=== PATIENT | female | born 1945 | race Caucasian/White ===

== ENCOUNTER 2020-01-23 09:44 | Outpatient (REF) | payer OTHER, SELFPAY ==
--- NOTE | 2020-01-23 10:24 | XR_ITS ---
EXAMINATION: XR CERVICAL SPINE CLINICAL INFORMATION: Assess osteoarthritis. Neck pain. COMPARISON: None TECHNIQUE: 2 views of the cervical spine were obtained. FINDINGS: Straightening of the normal cervical lordosis. Slight anterolisthesis of C4 on C5. This appears degenerative in nature. Vertebral body heights are maintained. Mild disc space narrowing of C5-C6 and C6-C7. Small endplate osteophytes throughout. The lung apices are clear. The prevertebral soft tissues are unremarkable. IMPRESSION: Mild multilevel degenerative changes of the cervical spine.
[2020-01-23 10:43] LABS: MANUAL DIFF FLAG NO
[2020-01-23 10:47] LABS: Basophils Absolute Auto 0.1 X10*3/uL (0.0-0.2); Basophils Percent Auto 0.8 % (0-2); Eosinophils Absolute Auto 0.2 X10*3/uL (0.0-0.4); Eosinophils Percent Auto 3.2 % (0-4); Hemoglobin 12.4 g/dl (12.0-16.0); Imm Gran Abs Auto 0.02 X10*3/uL (0.00-0.03); Imm Gran Pct Auto 0.3 % (0.0-0.4); Lymphocytes Absolute Auto 2.6 X10*3/uL (1.2-4.9); Lymphocytes Percent Auto 43.7 % (20-40); Mean Corpuscular HGB Conc 34.4 g/dl (31.0-35.0); Mean Corpuscular Hemoglobin 30.8 pg (27.0-33.0); Mean Corpuscular Volume 89.3 fL (80-98); Mean Platelet Volume 9.9 fL (9.4-12.3); Monocytes Absolute Auto 0.5 X10*3/uL (0.1-1.2); Monocytes Percent Auto 7.8 % (2-11); Neutrophils Absolute Auto 2.7 X10*3/uL (2.0-8.3); Neutrophils Percent Auto 44.2 % (45-73); Platelet Count 234 X10*3/uL (160-400); Red Blood Count 4.03 X10*6/uL (4.20-5.50); Red Cell Distribution Width 11.7 % (11.0-16.0)
[2020-01-23 11:21] LABS: Alanine Aminotransferase 25 U/L (0-31); Albumin Level 4.6 g/dL (3.5-5.0); Alkaline Phosphatase 59 U/L (39-117); Anion Gap 12 (12-20); Aspartate Amino Transferase 22 U/L (5-31); Bilirubin Total 0.6 mg/dL (0.0-1.0); Blood Urea Nitrogen 14 mg/dL (9-16); Calcium 9.5 mg/dL (8.4-10.2); Carbon Dioxide 27 mmol/L (22-29); Chloride 106 mmol/L (96-108); Estimated Glomerular Filt Rate > 60; Glucose Random 107 mg/dL (60-115); Potassium 4.4 mmol/l (3.3-5.1); Sodium 141 mmol/L (135-145); Total Protein 6.9 g/dL (6.5-8.0)
== END 2020-01-23 09:45 | disposition home or self-care (01) ==
LOC: HO.XRAY 09:44
PROVIDERS: PCP Internal Medicine; Visit Provider Internal Medicine
DX: M54.2 Cervicalgia (principal); R51.9 Headache, unspecified; I10 Essential (primary) hypertension
CPT/HCPCS: 36415; 72040; 80053; 85025

== ENCOUNTER 2021-02-16 12:19 | Outpatient (REF) | payer OTHER, SELFPAY ==
--- NOTE | ~2021-02-16 | MM_ITS ---
EXAMINATION: MM SCREENING DIGITAL BREAST TOMOSYNTHESIS, BILATERAL CLINICAL INFORMATION: Screening. Asymptomatic. The lifetime risk of breast cancer based on the Tyrer-Cuzick Model is 2.6%. COMPARISON: Mammography: December 17, 2019 and studies dating back to August 09, 2011 TECHNIQUE: Digital breast tomosynthesis is performed in both the craniocaudal and mediolateral oblique views along with computer-aided detection (CAD). Synthesized 2D images are generated from the tomosynthesis. FINDINGS: There are scattered areas of fibroglandular density (ACR BI-RADS breast composition Category b). There are no significant masses, abnormal calcifications, or other abnormalities. MM/MM tomosynthesis screening BI IMPRESSION: There are no significant changes from prior study. ASSESSMENT: BI-RADS 1: Negative RECOMMENDATION: Routine annual mammography screening. This patient's information was entered into a reminder system with a target due date for their next mammogram.
== END 2021-02-16 12:20 | disposition home or self-care (01) ==
LOC: HO.MAMMO 12:19
PROVIDERS: Visit Provider Internal Medicine
DX: Z12.31 Encounter for screening mammogram for malignant neoplasm of breast (principal)
CPT/HCPCS: 77063; 77067

== ENCOUNTER 2021-03-24 08:37 | Outpatient (REF) | payer OTHER, SELFPAY ==
[2021-03-24 10:04] LABS: MANUAL DIFF FLAG NO
[2021-03-24 10:11] LABS: Basophils Absolute Auto 0.1 X10*3/uL (0.0-0.2); Basophils Percent Auto 0.9 % (0-2); Eosinophils Absolute Auto 0.3 X10*3/uL (0.0-0.4); Eosinophils Percent Auto 4.7 % (0-4); Hematocrit 35.8 % (37.0-47.0); Hemoglobin 12.3 g/dl (12.0-16.0); Imm Gran Abs Auto 0.01 X10*3/uL (0.00-0.03); Imm Gran Pct Auto 0.2 % (0.0-0.4); Lymphocytes Absolute Auto 2.8 X10*3/uL (1.2-4.9); Lymphocytes Percent Auto 44.1 % (20-40); Mean Corpuscular HGB Conc 34.4 g/dl (31.0-35.0); Mean Corpuscular Hemoglobin 30.8 pg (27.0-33.0); Mean Corpuscular Volume 89.7 fL (80.0-98.0); Mean Platelet Volume 9.3 fL (9.4-12.3); Monocytes Absolute Auto 0.6 X10*3/uL (0.1-1.2); Monocytes Percent Auto 8.6 % (2-11); Neutrophils Absolute Auto 2.7 x10*3/uL (2.0-8.3); Neutrophils Percent Auto 41.5 % (45-73); Platelet Count 287 X10*3/uL (160-400); Red Blood Count 3.99 X10*6/uL (4.20-5.50); Red Cell Distribution Width 11.6 % (11.0-16.0); White Blood Count 6.4 X10*3/uL (4.8-10.8)
[2021-03-24 10:58] LABS: Alanine Aminotransferase 26 U/L (0-31); Albumin Level 4.5 g/dL (3.5-5.0); Alkaline Phosphatase 62 U/L (39-117); Anion Gap 11 (12-20); Aspartate Amino Transferase 25 U/L (5-31); Bilirubin Total 0.5 mg/dL (0.0-1.0); Blood Urea Nitrogen 16 mg/dL (9-16); Calcium 9.6 mg/dL (8.4-10.2); Carbon Dioxide 26 mmol/L (22-29); Chloride 108 mmol/L (96-108); Cholesterol 235 mg/dL; Estimated Glomerular Filt Rate > 60; Glucose Fasting 107 mg/dL (60-99); HDL Cholesterol 33 mg/dL; LDL Cholesterol Calculated 167 mg/dl; Potassium 4.3 mmol/L (3.3-5.1); Sodium 141 mmol/L (135-145); Total Protein 6.9 g/dL (6.5-8.0); Triglycerides 179 mg/dL
== END 2021-03-24 08:38 | disposition home or self-care (01) ==
LOC: HO.10HDL 08:37
PROVIDERS: Visit Provider Internal Medicine
DX: E78.00 Pure hypercholesterolemia, unspecified (principal); I10 Essential (primary) hypertension; R53.83 Other fatigue
CPT/HCPCS: 36415; 80053; 80061; 85025

== ENCOUNTER 2021-07-22 07:33 | Outpatient (REF) | payer OTHER, SELFPAY ==
[2021-07-22 08:00] LABS: MANUAL DIFF FLAG NO
[2021-07-22 08:09] LABS: Basophils Absolute Auto 0.1 X10*3/uL (0.0-0.2); Basophils Percent Auto 0.7 % (0-2); Eosinophils Absolute Auto 0.4 X10*3/uL (0.0-0.4); Hemoglobin 12.1 g/dl (12.0-16.0); Imm Gran Abs Auto 0.01 X10*3/uL (0.00-0.03); Imm Gran Pct Auto 0.1 % (0.0-0.4); Lymphocytes Percent Auto 41.9 % (20-40); Mean Corpuscular HGB Conc 34.6 g/dl (31.0-35.0); Mean Corpuscular Hemoglobin 30.6 pg (27.0-33.0); Mean Corpuscular Volume 88.6 fL (80.0-98.0); Mean Platelet Volume 9.3 fL (9.4-12.3); Monocytes Absolute Auto 0.6 X10*3/uL (0.1-1.2); Monocytes Percent Auto 7.6 % (2-11); Neutrophils Absolute Auto 3.2 x10*3/uL (2.0-8.3); Neutrophils Percent Auto 44.7 % (45-73); Platelet Count 238 X10*3/uL (160-400); Red Blood Count 3.95 X10*6/uL (4.20-5.50); Red Cell Distribution Width 11.9 % (11.0-16.0); White Blood Count 7.2 X10*3/uL (4.8-10.8)
[2021-07-22 08:34] LABS: Alanine Aminotransferase 34 U/L (0-31); Albumin Level 4.5 g/dL (3.5-5.0); Alkaline Phosphatase 61 U/L (39-117); Anion Gap 14 (12-20); Aspartate Amino Transferase 29 U/L (5-31); Bilirubin Total 0.6 mg/dL (0.0-1.0); Blood Urea Nitrogen 11 mg/dL (9-16); Calcium 9.8 mg/dL (8.4-10.2); Carbon Dioxide 22 mmol/L (22-29); Chloride 110 mmol/L (96-108); Cholesterol 146 mg/dL; Estimated Glomerular Filt Rate > 60; Glucose Fasting 128 mg/dL (60-99); HDL Cholesterol 38 mg/dL; LDL Cholesterol Calculated 88 mg/dl; Sodium 142 mmol/L (135-145); Total Protein 6.8 g/dL (6.5-8.0); Triglycerides 103 mg/dL
[2021-07-22 08:56] LABS: Vitamin D 25-OH Total 71.2 ng/mL (>30)
== END 2021-07-22 07:34 | disposition home or self-care (01) ==
LOC: HO.LAB 07:33
PROVIDERS: PCP Internal Medicine; Visit Provider Internal Medicine
DX: I10 Essential (primary) hypertension (principal); E78.00 Pure hypercholesterolemia, unspecified; K21.9 Gastro-esophageal reflux disease without esophagitis; R10.9 Unspecified abdominal pain
CPT/HCPCS: 36415; 80053; 80061; 82306; 85025

== ENCOUNTER 2021-07-23 00:39 | Emergency (ER) | payer OTHER, SELFPAY ==
[2021-07-23] VITALS (10 sets, daily range): BP systolic 114–148; BP diastolic 47–62; PULSE 59–84; RESP 12–18; TEMP 36.8–36.9; O2SAT 93–98; BMI 24.7
--- NOTE | ~2021-07-23 | CT_ITS ---
EXAMINATION: CT ANGIOGRAM CHEST CLINICAL INFORMATION: Shortness of breath and chest pain radiating to the back. COMPARISON: None TECHNIQUE: Multiple axial images were obtained through the chest after the administration of 70 mL of Omnipaque 350 intravenous contrast. Extensive vascular post-processing including two-dimensional and three-dimensional reformatted images were created and reviewed on an independent workstation. This CT examination was performed using dose optimization techniques as appropriate, variously including the following: *Automated exposure control *Adjustment of mA and/or kV according to patient size (this includes techniques or standardized protocols for targeted exams where dose is matched to indication/reason for exam; i.e. extremities or head) *Use of iterative reconstruction technique DLP: 324 mGy-cm FINDINGS: Vascular: No aortic aneurysm or dissection. While examination is not tailored towards evaluation of the pulmonary arteries, the timing of the bolus is such that pulmonary embolism can be excluded as well. Mediastinum/trupti: Normal heart size. No pericardial effusion. No mediastinal or hilar adenopathy. Imaged thyroid gland unremarkable. Lungs/pleura: No focal consolidation or pneumonitis. No bronchial wall thickening or bronchiectasis. Stable biapical pleural-parenchymal scarring. No pleural effusion or pneumothorax. Chest wall/axilla: Unremarkable. Imaged abdomen: Hepatic steatosis. CT/CT angio chest aorta IMPRESSION: No aortic aneurysm or dissection. No pulmonary embolism. No acute pulmonary parenchymal abnormalities.
--- NOTE | ~2021-07-23 | XR_ITS ---
EXAMINATION: XR CHEST CLINICAL INFORMATION: Chest pain COMPARISON: 03/17/2019 TECHNIQUE: Frontal view of the chest was obtained. FINDINGS: No significant abnormality is noted involving the heart, lungs, mediastinum, bony thorax or soft tissues. XR/XR chest 1V IMPRESSION: Unremarkable examination.
--- NOTE | 2021-07-23 00:40 | ECG_ITS ---
Test Reason : CHEST PAIN Blood Pressure : / mmHG Vent. Rate : 072 BPM Atrial Rate : 072 BPM P-R Int : 148 ms QRS Dur : 082 ms QT Int : 392 ms P-R-T Axes : 049 -17 033 degrees QTc Int : 429 ms Sinus rhythm with occasional Premature ventricular complexes Septal infarct (cited on or before 12-JUN-2013) Abnormal ECG When compared with ECG of 17-MAR-2019 00:12, No significant change was found Referred By: Karli Mendes Electronically Signed By:Hamzah Shoemaker
[2021-07-23 01:12] LABS: MANUAL DIFF FLAG NO
[2021-07-23 01:13] LABS: Basophils Absolute Auto 0.1 X10*3/uL (0.0-0.2); Basophils Percent Auto 0.6 % (0-2); Eosinophils Absolute Auto 0.3 X10*3/uL (0.0-0.4); Eosinophils Percent Auto 4.4 % (0-4); Hematocrit 32.8 % (37.0-47.0); Hemoglobin 11.5 g/dl (12.0-16.0); Imm Gran Abs Auto 0.01 X10*3/uL (0.00-0.03); Imm Gran Pct Auto 0.1 % (0.0-0.4); Lymphocytes Absolute Auto 3.5 X10*3/uL (1.2-4.9); Lymphocytes Percent Auto 44.4 % (20-40); Mean Corpuscular HGB Conc 35.1 g/dl (31.0-35.0); Mean Corpuscular Hemoglobin 31.3 pg (27.0-33.0); Mean Corpuscular Volume 89.1 fL (80.0-98.0); Mean Platelet Volume 9.2 fL (9.4-12.3); Monocytes Absolute Auto 0.6 X10*3/uL (0.1-1.2); Monocytes Percent Auto 7.9 % (2-11); Neutrophils Absolute Auto 3.3 x10*3/uL (2.0-8.3); Neutrophils Percent Auto 42.6 % (45-73); Platelet Count 231 X10*3/uL (160-400); Red Blood Count 3.68 X10*6/uL (4.20-5.50); Red Cell Distribution Width 12.1 % (11.0-16.0); White Blood Count 7.8 X10*3/uL (4.8-10.8)
[2021-07-23 01:20] LABS: D Dimer High Sensitivity 151 NG/ML
[2021-07-23] MEDS: PHENobarb/Hyoscy/Atropine/Scop 10 ML ELIXIR PO (01:20)
[2021-07-23] MEDS: Ondansetron ODT 4 MG TAB.RAPDIS TRANSLINGU (01:20)
[2021-07-23] MEDS: Magnesium Hydrox/Alum Hydrox 30 ML ORAL.SUSP PO (01:20)
[2021-07-23] MEDS: Morphine Sulfate 2 MG/ML CARTRIDGE IVPUSH (01:20)
[2021-07-23 01:26] LABS: COVID-19 Test Negative (Negative)
[2021-07-23 01:30] LABS: Lipase 38 U/L (8-78)
[2021-07-23 01:31] LABS: Alanine Aminotransferase 30 U/L (0-31); Albumin Level 4.4 g/dL (3.5-5.0); Alkaline Phosphatase 61 U/L (39-117); Anion Gap 13 (12-20); Aspartate Amino Transferase 27 U/L (5-31); Bilirubin Total 0.3 mg/dL (0.0-1.0); Blood Urea Nitrogen 12 mg/dL (9-16); Calcium 9.6 mg/dL (8.4-10.2); Carbon Dioxide 23 mmol/L (22-29); Chloride 109 mmol/L (96-108); Creatinine Clr Calc Pharmacy 59.9; Estimated Glomerular Filt Rate > 60; Glucose Random 127 mg/dL (60-115); Magnesium 1.8 mg/dL (1.6-2.6); Potassium 3.6 mmol/L (3.3-5.1); Sodium 141 mmol/L (135-145); Total Protein 6.7 g/dL (6.5-8.0)
[2021-07-23 01:33] LABS: B Type Natriuretic Peptide 15 pg/mL (<100)
[2021-07-23 01:34] LABS: Troponin-I High Sensitivity < 3.5 ng/L (<3.5-17.0)
--- NOTE | 2021-07-23 02:07 | ED_ITS ---
HPI - Chest Pain General Chief Complaint: Chest Pain <KODY Roberts - Last Filed: 07/23/21 03:19> Stated Complaint: abd and cp <KODY Roberts - Last Filed: 07/23/21 03:19> Time Seen by Provider: 07/23/21 00:39 <KODY Roberts - Last Filed: 07/23/21 03:19> Source: patient <KODY Roberts - Last Filed: 07/23/21 03:19> Mode of arrival: EMS <KODY Roberts - Last Filed: 07/23/21 03:19> Limitations: no limitations <KODY Roberts - Last Filed: 07/23/21 03:19> History of Present Illness HPI narrative: This is a 76-year-old female past medical history significant for hypertension, hyperlipidemia presenting to the emergency department with severe chest pain x2 weeks intermittent in nature. Patient tells me the chest pain is substernal it comes and goes, describes it as sharp sensation at times radiates to her left arm and at times neck. He tells me that she has noted that this chest pain worsens with exertion and is better at rest. She is scheduled to have a stress test done on . She also reports associated shortness of breath again worse with exertion. She denies nausea, vomiting, abdominal pain, fevers, chills, leg swelling, calf pain or tenderness, weakness, headache, dizziness. Patient currently takes aspirin daily. No other blood thinners. She denies trauma to the area. <KODY Roberts - Last Filed: 07/23/21 03:19> MD complaint: chest pain and chest discomfort <KODY Roberts - Last Filed: 07/23/21 03:19> Onset (ago): week(s) (2) <KODY Roberts Last Filed: 07/23/21 03:19> Timing of current episode: episodic <KODY Roberts - Last Filed: 07/23/21 03:19> Prior episodes: Yes <KODY Roberts - Last Filed: 07/23/21 03:19> Onset: during rest <KODY Roberts - Last Filed: 07/23/21 03:19> Pain location: substernal <KODY Roberts - Last Filed: 07/23/21 03:19> Pain radiation: none <KODY Roberts - Last Filed: 07/23/21 03:19> Severity: severe <KODY Roberts - Last Filed: 07/23/21 03:19> Pain scale (0-10): 10 <KODY Roberts - Last Filed: 07/23/21 03:19> Quality: sharp <KODY Roberts - Last Filed: 07/23/21 03:19> Relieving factors: nothing <KODY Roberts - Last Filed: 07/23/21 03:19> Exacerbating factors: exertion and movement <KODY Roberts - Last Filed: 07/23/21 03:19> Associated symptoms: dyspnea <KODY Roberts - Last Filed: 07/23/21 03:19> Treatment prior to arrival: none <KODY Roberts - Last Filed: 07/23/21 03:19> Related Data Allergies/Adverse Reactions: Allergies Allergy/AdvReac Type Severity Reaction Status Date / Time penicillin V Allergy Unknown Verified 09/05/18 00:00 Penicillins Allergy Unknown RASH Unverified 12/26/19 17:29 Sulfa (Sulfonamide Allergy Unknown Verified 09/05/18 00:00 Antibiotics) sulfamethoxazole Allergy Unknown RASH Unverified 12/26/19 17:29 trimethoprim Allergy Unknown RASH Unverified 12/26/19 17:29 <KODY Roberts - Last Filed: 07/23/21 03:19> Review of Systems Review of Systems: Constitutional : No Weight loss, No Fever, No Chills, No Fatigue, No Malaise ENT/Mouth : No sore throat, No Rhinorrhea Eyes: No Eye Pain, No Swelling, No Redness Cardiovascular : + Chest Pain, + SOB, + Dyspnea on Exertion, No Orthopnea, No Edema, No Palpitations Respiratory : No Cough, No Sputum, No Wheezing Gastrointestinal : No Nausea, No Vomiting, No Diarrhea, No Constipation, No abdominal Pain, No Hematochezia, No Melena Genitourinary : No Dysuria, No Urinary Frequency, No Hematuria, Musculoskeletal : No joint pain, No Myalgias, No Joint Swelling Skin : No Skin Lesions, No rash Neuro : No Weakness, No Numbness, No Dizziness, No Headache Psych : No Anxiety/Panic, No Depression All other systems reviewed and are negative <KODY Roberts - Last Filed: 07/23/21 03:19> Yes all other systems are reviewed and are negative <KODY Roberts - Last Filed: 07/23/21 03:19> [facility] Past Medical History Attestation statement: The following information was validated with the patient. <KODY Roberts - Last Filed: 07/23/21 03:19> Source: old records reviewed and nursing notes reviewed <KODY Roberts - Last Filed: 07/23/21 03:19> Social History Social History: Social History Advance Directives: No <KODY Roberts Last Filed: 07/23/21 03:19> Physical Exam Vital Signs: Vital Signs: Last Vital Signs Temp 98.2 F 07/23/21 00:48 Pulse 83 07/23/21 06:02 Resp 17 07/23/21 06:02 BP 114/55 L 07/23/21 06:02 Pulse Ox 93 07/23/21 06:02 BMI result Body Mass Index 24.7 Vital signs stable. Bilateral blood pressures within reasonable range. <KODY Roberts - Last Filed: 07/23/21 03:19> Appearance: Alert.? Oriented X3.? No acute distress.? Head: Normocephalic, atraumatic, no step-offs or deformities Eyes: Pupils equal, round and reactive to light.? ENT: Pharynx normal.? Neck: Normal inspection.? Neck supple.? CVS: Normal heart rate and rhythm.? Pulses normal.? Respiratory: No respiratory distress.? Breath sounds normal.? Abdomen: Soft and nontender.? Skin: Skin warm and dry.? Normal skin color.? Normal skin turgor.? Extremities: No lower extremity edema.? No calf ttp, negative herbert b/l. 5/5 strength to bilateral upper and lower extremities Back: No midline tenderness, no C-spine tenderness, full range of motion, no CVA tenderness bilaterally Neuro: Oriented X 3.? No motor deficit.? No sensory deficit. CN 2-12 intact <KODY Roberts - Last Filed: 07/23/21 03:19> Course Reevaluation(s) Reevaluation #1: CBC appears to be around patient's baseline. Chemistry with no acute electrolyte abnormalities requiring intervention. BNP negative unlikely CHF. Troponin negative x1. EKG appears unchanged from previous from 2019. No evidence signs of ischemia. Given patient's symptoms will repeat troponin at 0400. D-dimer negative unlikely PE/DVT. Chest x-ray unremarkable. COVID negative. ESR CRP pending will rule out pericarditis however unlikely. CTA of the chest/aorta obtained however still pending results from Radiology. VBG pending as patient was hypoxic for unexplained reasons. At this time report given to . I have spoken to the hospitalist about this patient as she will likely require hospital admission for chest pain. Patient also complaining nausea at this time. Reglan and Benadryl have been ordered. <KODY Roberts - Last Filed: 07/23/21 03:19> Time: 02:51 <KODY Roberts - Last Filed: 07/23/21 03:19> MDM - Chest Pain MDM Narrative Medical decision making narrative: [age] yo f presents w/ exertional dyspnea and chest pain x2 weeks worsening. Physical examination benign. Upon review of vital signs patient is noted to be slightly hypoxic. Saturating in low 90s, high 80s on room air. Negative Herbert bilaterally. Neuro exam nonfocal. No carotid bruits appreciated. Regular rate and rhythm. Lungs clear. Based off patient history and physical examination will rule out PE, aortic dissection, ACS. However likely unstable angina. Plan at this time is labs, imaging, urine, EKG, CTA of chest/aorta to rule out dissection, she will get a GI cocktail for GERD like symptoms that shes reporting <KODY Roberts - Last Filed: 07/23/21 03:19> Medical Records Data Attestation: I reviewed the patient's medical records. <KODY Roberts - Last Filed: 07/23/21 03:19> Lab Data Attestation: I reviewed the patient's lab results. <KODY Roberts - Last Filed: 07/23/21 03:19> Result diagrams: : 07/23/21 00:59 07/23/21 00:59 <KODY Roberts - Last Filed: 07/23/21 03:19> Labs: Lab Results 07/23/21 07/23/21 07/23/21 Range/Units 00:59 00:59 00:59 WBC 7.8 (4.8-10.8) X10*3/uL RBC 3.68 L (4.20-5.50) X10*6/uL Hgb 11.5 L (12.0-16.0) g/dl Hct 32.8 L (37.0-47.0) % MCV 89.1 (80.0-98.0) fL MCH 31.3 (27.0-33.0) pg MCHC 35.1 H (31.0-35.0) g/dl RDW 12.1 (11.0-16.0) % Plt Count 231 (160-400) X10*3/uL MPV 9.2 L (9.4-12.3) fL Immature Gran % (Auto) 0.1 (0.0-0.4) % Neut % (Auto) 42.6 L (45-73) % Lymph % (Auto) 44.4 H (20-40) % [place] % (Auto) 7.9 (2-11) % Eos % (Auto) 4.4 H (0-4) % Baso % (Auto) 0.6 (0-2) % Lymph # (Auto) 3.5 (1.2-4.9) X10*3/uL [place] # (Auto) 0.6 (0.1-1.2) X10*3/uL Eos # (Auto) 0.3 (0.0-0.4) X10*3/uL Baso # (Auto) 0.1 (0.0-0.2) X10*3/uL Abs Immat Gran (auto) 0.01 (0.00-0.03) X10*3/uL Absolute Neuts (auto) 3.3 (2.0-8.3) x10*3/uL Absolute Nucleated RBC 0.000 (0.0-0.012) X10*3/uL Nucleated RBC % (auto) 0.0 (0.0-0.2) /100WBC ESR (0-20) MM/HR D-Dimer High Sensitivty 151 NG/ML O2 Saturation % ABG pH at Pt Temp (7.35-7.45) ABG pCO2 at Pt Temp (32-45) mmHg ABG pO2 at Pt Temp (83-108) mmHg ABG HCO3 (22-26) mmol/L ABG Base Excess (Actual) mmol/L Sodium (135-145) mmol/L Potassium (3.3-5.1) mmol/L Chloride (96-108) mmol/L Carbon Dioxide (22-29) mmol/L Anion Gap (12-20) BUN (9-16) mg/dL Creatinine (0.5-1.4) mg/dL Estim Creat Clear Calc Estimated GFR Random Glucose (60-115) mg/dL Calcium (8.4-10.2) mg/dL Magnesium (1.6-2.6) mg/dL Total Bilirubin (0.0-1.0) mg/dL AST (5-31) U/L ALT (0-31) U/L Alkaline Phosphatase (39-117) U/L Troponin I High Sens (<3.5-17.0) ng/L C-Reactive Protein (< or = 0.50) mg/dL B-Natriuretic Peptide 15 (<100) pg/mL Total Protein (6.5-8.0) g/dL Albumin (3.5-5.0) g/dL Lipase (8-78) U/L Urine Color Urine Appearance Urine pH (5.0-8.0) Ur Specific Preemption (1.005-1.025) Urine Protein (NEG-TRACE) MG/DL Urine Glucose (UA) (NEG) MG/DL Urine Ketones (NEG) MG/DL Urine Blood (NEG) Urine Nitrite (NEG) Ur Leukocyte Esterase (NEG) Urine RBC (0) /HPF Urine WBC (0-4) /HPF Ur Squamous Epith Cells /LPF Urine Bacteria /LPF COVID-19 (RHETT) (Negative) COVID-19 Clin Com 07/23/21 07/23/21 07/23/21 Range/Units 00:59 00:59 00:59 WBC (4.8-10.8) X10*3/uL RBC (4.20-5.50) X10*6/uL Hgb (12.0-16.0) g/dl Hct (37.0-47.0) % MCV (80.0-98.0) fL MCH (27.0-33.0) pg MCHC (31.0-35.0) g/dl RDW (11.0-16.0) % Plt Count (160-400) X10*3/uL MPV (9.4-12.3) fL Immature Gran % (Auto) (0.0-0.4) % Neut % (Auto) (45-73) % Lymph % (Auto) (20-40) % [place] % (Auto) (2-11) % Eos % (Auto) (0-4) % Baso % (Auto) (0-2) % Lymph # (Auto) (1.2-4.9) X10*3/uL [place] # (Auto) (0.1-1.2) X10*3/uL Eos # (Auto) (0.0-0.4) X10*3/uL Baso # (Auto) (0.0-0.2) X10*3/uL Abs Immat Gran (auto) (0.00-0.03) X10*3/uL Absolute Neuts (auto) (2.0-8.3) x10*3/uL Absolute Nucleated RBC (0.0-0.012) X10*3/uL Nucleated RBC % (auto) (0.0-0.2) /100WBC ESR (0-20) MM/HR D-Dimer High Sensitivty NG/ML O2 Saturation % ABG pH at Pt Temp (7.35-7.45) ABG pCO2 at Pt Temp (32-45) mmHg ABG pO2 at Pt Temp (83-108) mmHg ABG HCO3 (22-26) mmol/L ABG Base Excess (Actual) mmol/L Sodium 141 (135-145) mmol/L Potassium 3.6 (3.3-5.1) mmol/L Chloride 109 H (96-108) mmol/L Carbon Dioxide 23 (22-29) mmol/L Anion Gap 13 (12-20) BUN 12 (9-16) mg/dL Creatinine 0.80 (0.5-1.4) mg/dL Estim Creat Clear Calc 59.9 Estimated GFR > 60 Random Glucose 127 H (60-115) mg/dL Calcium 9.6 (8.4-10.2) mg/dL Magnesium 1.8 (1.6-2.6) mg/dL Total Bilirubin 0.3 (0.0-1.0) mg/dL AST 27 (5-31) U/L ALT 30 (0-31) U/L Alkaline Phosphatase 61 (39-117) U/L Troponin I High Sens < 3.5 (<3.5-17.0) ng/L C-Reactive Protein 0.12 (< or = 0.50) mg/dL B-Natriuretic Peptide (<100) pg/mL Total Protein 6.7 (6.5-8.0) g/dL Albumin 4.4 (3.5-5.0) g/dL Lipase (8-78) U/L Urine Color Urine Appearance Urine pH (5.0-8.0) Ur Specific Preemption (1.005-1.025) Urine Protein (NEG-TRACE) MG/DL Urine Glucose (UA) (NEG) MG/DL Urine Ketones (NEG) MG/DL Urine Blood (NEG) Urine Nitrite (NEG) Ur Leukocyte Esterase (NEG) Urine RBC (0) /HPF Urine WBC (0-4) /HPF Ur Squamous Epith Cells /LPF Urine Bacteria /LPF COVID-19 (RHETT) Negative (Negative) COVID-19 Clin Com See Note 07/23/21 07/23/21 07/23/21 Range/Units 00:59 00:59 03:28 WBC (4.8-10.8) X10*3/uL RBC (4.20-5.50) X10*6/uL Hgb (12.0-16.0) g/dl Hct (37.0-47.0) % MCV (80.0-98.0) fL MCH (27.0-33.0) pg MCHC (31.0-35.0) g/dl RDW (11.0-16.0) % Plt Count (160-400) X10*3/uL MPV (9.4-12.3) fL Immature Gran % (Auto) (0.0-0.4) % Neut % (Auto) (45-73) % Lymph % (Auto) (20-40) % [place] % (Auto) (2-11) % Eos % (Auto) (0-4) % Baso % (Auto) (0-2) % Lymph # (Auto) (1.2-4.9) X10*3/uL [place] # (Auto) (0.1-1.2) X10*3/uL Eos # (Auto) (0.0-0.4) X10*3/uL Baso # (Auto) (0.0-0.2) X10*3/uL Abs Immat Gran (auto) (0.00-0.03) X10*3/uL Absolute Neuts (auto) (2.0-8.3) x10*3/uL Absolute Nucleated RBC (0.0-0.012) X10*3/uL Nucleated RBC % (auto) (0.0-0.2) /100WBC ESR 7 (0-20) MM/HR D-Dimer High Sensitivty NG/ML O2 Saturation 98.0 % ABG pH at Pt Temp 7.41 (7.35-7.45) ABG pCO2 at Pt Temp 34 (32-45) mmHg ABG pO2 at Pt Temp 107 (83-108) mmHg ABG HCO3 22 (22-26) mmol/L ABG Base Excess (Actual) -1.8 mmol/L Sodium (135-145) mmol/L Potassium (3.3-5.1) mmol/L Chloride (96-108) mmol/L Carbon Dioxide (22-29) mmol/L Anion Gap (12-20) BUN (9-16) mg/dL Creatinine (0.5-1.4) mg/dL Estim Creat Clear Calc Estimated GFR Random Glucose (60-115) mg/dL Calcium (8.4-10.2) mg/dL Magnesium (1.6-2.6) mg/dL Total Bilirubin (0.0-1.0) mg/dL AST (5-31) U/L ALT (0-31) U/L Alkaline Phosphatase (39-117) U/L Troponin I High Sens (<3.5-17.0) ng/L C-Reactive Protein (< or = 0.50) mg/dL B-Natriuretic Peptide (<100) pg/mL Total Protein (6.5-8.0) g/dL Albumin (3.5-5.0) g/dL Lipase 38 (8-78) U/L Urine Color Urine Appearance Urine pH (5.0-8.0) Ur Specific Preemption (1.005-1.025) Urine Protein (NEG-TRACE) MG/DL Urine Glucose (UA) (NEG) MG/DL Urine Ketones (NEG) MG/DL Urine Blood (NEG) Urine Nitrite (NEG) Ur Leukocyte Esterase (NEG) Urine RBC (0) /HPF Urine WBC (0-4) /HPF Ur Squamous Epith Cells /LPF Urine Bacteria /LPF COVID-19 (RHETT) (Negative) COVID-19 Clin Com 07/23/21 07/23/21 Range/Units 04:24 05:08 WBC (4.8-10.8) X10*3/uL RBC (4.20-5.50) X10*6/uL Hgb (12.0-16.0) g/dl Hct (37.0-47.0) % MCV (80.0-98.0) fL MCH (27.0-33.0) pg MCHC (31.0-35.0) g/dl RDW (11.0-16.0) % Plt Count (160-400) X10*3/uL MPV (9.4-12.3) fL Immature Gran % (Auto) (0.0-0.4) % Neut % (Auto) (45-73) % Lymph % (Auto) (20-40) % [place] % (Auto) (2-11) % Eos % (Auto) (0-4) % Baso % (Auto) (0-2) % Lymph # (Auto) (1.2-4.9) X10*3/uL [place] # (Auto) (0.1-1.2) X10*3/uL Eos # (Auto) (0.0-0.4) X10*3/uL Baso # (Auto) (0.0-0.2) X10*3/uL Abs Immat Gran (auto) (0.00-0.03) X10*3/uL Absolute Neuts (auto) (2.0-8.3) x10*3/uL Absolute Nucleated RBC (0.0-0.012) X10*3/uL Nucleated RBC % (auto) (0.0-0.2) /100WBC ESR (0-20) MM/HR D-Dimer High Sensitivty NG/ML O2 Saturation % ABG pH at Pt Temp (7.35-7.45) ABG pCO2 at Pt Temp (32-45) mmHg ABG pO2 at Pt Temp (83-108) mmHg ABG HCO3 (22-26) mmol/L ABG Base Excess (Actual) mmol/L Sodium (135-145) mmol/L Potassium (3.3-5.1) mmol/L Chloride (96-108) mmol/L Carbon Dioxide (22-29) mmol/L Anion Gap (12-20) BUN (9-16) mg/dL Creatinine (0.5-1.4) mg/dL Estim Creat Clear Calc Estimated GFR Random Glucose (60-115) mg/dL Calcium (8.4-10.2) mg/dL Magnesium (1.6-2.6) mg/dL Total Bilirubin (0.0-1.0) mg/dL AST (5-31) U/L ALT (0-31) U/L Alkaline Phosphatase (39-117) U/L Troponin I High Sens 4.0 (<3.5-17.0) ng/L C-Reactive Protein (< or = 0.50) mg/dL B-Natriuretic Peptide (<100) pg/mL Total Protein (6.5-8.0) g/dL Albumin (3.5-5.0) g/dL Lipase (8-78) U/L Urine Color YELLOW Urine Appearance HAZY Urine pH 6.5 (5.0-8.0) Ur Specific Preemption <= 1.005 (1.005-1.025) Urine Protein NEG (NEG-TRACE) MG/DL Urine Glucose (UA) NEG (NEG) MG/DL Urine Ketones NEG (NEG) MG/DL Urine Blood NEG (NEG) Urine Nitrite NEG (NEG) Ur Leukocyte Esterase 1+ H (NEG) Urine RBC 0-2 (0) /HPF Urine WBC 5-9 H (0-4) /HPF Ur Squamous Epith Cells 1+ /LPF Urine Bacteria TRACE /LPF COVID-19 (RHETT) (Negative) COVID-19 Clin Com <KODY Roberts - Last Filed: 07/23/21 03:19> ECG Data ECG #1: Attestation: I personally reviewed and interpreted this ECG as follows: <KODY Roberts - Last Filed: 07/23/21 03:19> ECG interpretation date: 07/23/21 <KODY Roberts - Last Filed: 07/23/21 03:19> ECG interpretation time: 02:54 <KODY Roberts - Last Filed: 07/23/21 03:19> Prior ECG tracings: available for review <KODY Roberts - Last Filed: 07/23/21 03:19> Interpretation: Ventricular rate of 72 IA normal, QRS normal, QT/QTC normal. EKG shows normal sinus rhythm with occasional PVCs. When compared to EKG of March 2019 no significant changes. At this time no signs of acute ischemia. <KODY Roberts - Last Filed: 07/23/21 03:19> Critical Care Time Critical Care Time Critical Care Time: No <KODY Roberts - Last Filed: 07/23/21 03:19> Discharge Plan Discharge Clinical Impression: Angina pectoris, unspecified, Mild shortness of breath <KODY Roberts Last Filed: 07/23/21 03:19> Patient Disposition: Home, Self-Care <KODY Roberts - Last Filed: 07/23/21 03:19>
[2021-07-23] MEDS: iohexoL 350 MG/ML 100 ML INFUS..BTL IV (02:25)
[2021-07-23] MEDS: diphenhydrAMINE HCL 50 MG/ML VIAL 25 MG IVPUSH (03:01)
[2021-07-23] MEDS: Metoclopramide HCl 10 MG/2 ML VIAL IVPUSH (03:02)
[2021-07-23 03:08] LABS: C Reactive Protein 0.12 mg/dL (< or = 0.50)
[2021-07-23 03:33] LABS: Erythrocyte Sedimentation Rate 7 MM/HR (0-20)
[2021-07-23 03:36] LABS: ABG Base Excess -1.8 mmol/L; ABG HCO3 22 mmol/L (22-26); ABG pCO2 34 mmHg (32-45); ABG pH 7.41 (7.35-7.45); ABG pO2 107 mmHg (83-108)
[2021-07-23 04:30] LABS: Venous Blood Gas Refer to POC result
[2021-07-23 05:24] LABS: Appearance Urine HAZY; Color Urine YELLOW; Glucose Urine UA NEG (NEG); Leukocyte Esterase Urine 1+ (NEG); Nitrite Urine NEG (NEG); PH 6.5 (5.0-8.0); Specific Gravity - Urine <= 1.005 (1.005-1.025); UACC Culture Trigger YES; Urine Blood NEG (NEG); Urine Ketones NEG (NEG); Urine Protein NEG (NEG-TRACE)
[2021-07-23 05:38] LABS: Bacteria Urine TRACE /LPF; RBC Urine 0-2 /HPF (0); Squamous Epithelial Cell Urine 1+ /LPF
[2021-07-23] MEDS: cefTRIAXone sodium 1 GM in 0.9 % Sodium Chloride 50 ML IV (06:34)
--- NOTE | 2021-07-23 08:27 | PC.NURSE ---
pt is axox3. nsr on monitor. denies CP at this time. describes periods of epigastric pain and diarrhea with po intake. with exertion painradiates to left chest and shoulder. diaphoresis at night only.
--- NOTE | 2021-07-23 08:30 | PHA.MEDREC ---
Pharmacy Consult ? Medication Reconciliation Pharmacy has completed the medication reconciliation.
[2021-07-23 11:58] LABS: VBG Base Excess 0.7 mmol/L; VBG HCO3 23 mmol/L (22-26); VBG pCO2 29 mmHg; VBG pH 7.49 (7.32-7.43); VBG pO2 108 mmHg
--- NOTE | 2021-07-23 12:06 | PC.NURSE ---
resting quietly. no complaints
--- NOTE | 2021-07-23 13:31 | P.EN_ITS ---
Event Note Date of Service: 07/23/21 Event Note: Pt seen and examined this afternoon. she reports sharp central chest pain radiating through to her back occurring daily since February. Pain was discussed with her primary care physician and he has scheduled her to have an outpatient stress test July 29. She experienced an episode of pain that was stronger and lasted longer than her previous episodes which prompted her to come to the emergency department for evaluation. Her EKG appears unchang ed from previous. Two high sensitivity troponins were drawn and remained flat at <3.5, 4.0. Patient has not had recurrent chest pain during the 12 hour she has been in the emergency department. The case was discussed with cardiology who recommended to keep outpatient stress test appointment. No inpatient workup required at this time. This was discussed with the patient at the bedside and she is agreeable with this plan. She is encouraged to avoid physical activity/heavy lifting until her stress test is completed. If stress test is negative she may need outpatient GI workup.
--- NOTE | 2021-07-23 14:26 | PC.NURSE ---
HOSPITALIST MET WITH PATIENT. PLAN IS FOR DC HOME. PT AGREEABLE TO PLAN. PT AWAKE, ALERT AND ORIENTED X 3. SKIN WARM AND DRY. RESP UNLABORED. DENIES N/V. NO C/O CHEST PAIN, DENIES DIZZINESS. IV REMOVED. AMBULATORY OUT OF ER, GAIT STEADY
== END 2021-07-23 14:30 | disposition home or self-care (01) ==
PROVIDERS: Physician Assistant; Emergency Provider Emergency Medicine
DX: I20.9 Angina pectoris, unspecified (principal); R06.02 Shortness of breath; R07.89 Other chest pain; M54.50 Low back pain, unspecified; Z20.822 Contact with and (suspected) exposure to COVID-19; Z79.899 Other long term (current) drug therapy
CPT/HCPCS: 36415; 71045; 71275; 80053; 81001; 82803; 83690; 83735; 83880; 84484; 85025; 85379; 85652; 86140; 87086; 87635; 93005; 96365; 96375; 99285; J0696; J1200; J2270; J2765; Q9967

== ENCOUNTER → 2021-07-29 08:10 | Outpatient (REF) | payer OTHER, SELFPAY ==
--- NOTE | ~2021-07-29 | NM_ITS ---
Exercise Myocardial perfusion study Indication: Exertional chest pain to evaluate for myocardial ischemia Technique: The patient was brought in for an exercise perfusion study on 07/29/2021. Patient performed exercise as per Chintan protocol and was injected 25 mCi of sestamibi was given intravenously one target HR was achieved. Images were obtained using the SPECT gamma camera interlaced with the gating device. Images were obtained in supine position. Resting perfusion study was performed on 08/03/2021. Patient was administered 25 mCi of sestamibi intravenously at rest. Images were then obtained in supine position. Images obtained with and without CT attenuation. Total DLP 89 mGy-cm. Images were processed with the software and compared side to side in short axis, horizontal long axis and vertical long axis views. Findings: The stress perfusion study showed non attenuated images show mildly reduced uptake in the inferolateral wall of the LV myocardium. Remainder of the LV myocardium is normally perfused. Attenuation corrected images show minimal thinning of the lateral wall of the LV myocardium. Remainder of the LV myocardium normally perfused.. The gated study shows normal LV systolic function with calculated LVEF of 68%. LV cavity is normal in size. The gated study shows normal systolic wall thickening and contraction of all segments. There is no transient ischemic dilation. Resting study shows non attenuated images show normal uptake in the inferolateral wall of the LV myocardium.. Gating at rest reveals normal systolic wall motion with visually estimated ejection fraction at greater than 60%. The findings are consistent with finding suggestive of moderate area of mild intensity reversible defect of the inferolateral wall suggestive of ischemia.. NM/NM shay perf SPECT rest & str Impression: 1. Moderate size inferolateral ischemia 2. Gated LVEF is 68% 3. Transient ischemic dilatation not present Stress EKG is positive for ischemia
--- NOTE | 2021-07-29 08:15 | CA_ITS ---
Acquisition Time: 2021-07-29 08:26:50 Total Exercise Time: 00:03:13 Test Indications: Chest Pain Medications: LISINOPRIL Protocol: AMEENA Max HR: 137 BPM 93% of Pred: 146 BPM Max BP: 170/060 mmHG Max Work Load: 4.6 METS PT EXERCISED ON STD AMEENA PROTOCOL FOR 3:13 THRU STAGE 1. TEST STOPPED DUE TO SHARP CP. 2MM ST DEP IN INF/LAT LEADS. ELEV BP TO 200 SYST. DISCOMFORT RESOLVED WITH REST. OCC PVC'S. CLINICALLY AND ELEC SUSPICIOUS FOR ISCHEMIA. AWAIT SCAN RESULTS. Referred By: Yaw Siddiqui Overread By: ONEIL SIDDIQUI MD
== END ==
LOC: HO.CARD 08:10
PROVIDERS: Visit Provider Internal Medicine
DX: R07.9 Chest pain, unspecified (principal)
CPT/HCPCS: 78452; 93017; A9500

== ENCOUNTER → 2021-10-06 14:44 | Outpatient (BNVA) | payer OTHER, SELFPAY | PROVIDERS: PCP Internal Medicine; Referring Provider Internal Medicine; Visit Provider Internal Medicine Cardiovascular Disease | DX: I20.0 Unstable angina (principal) | CPT/HCPCS: 99202 ==

== ENCOUNTER 2021-10-07 08:40 | Outpatient (REF) | payer OTHER, SELFPAY ==
[2021-10-07 09:58] LABS: Hematocrit 35.6 % (37.0-47.0); Hemoglobin 12.4 g/dl (12.0-16.0); Mean Corpuscular HGB Conc 34.8 g/dl (31.0-35.0); Mean Corpuscular Hemoglobin 30.5 pg (27.0-33.0); Mean Corpuscular Volume 87.5 fL (80.0-98.0); Mean Platelet Volume 9.3 fL (9.4-12.3); Platelet Count 262 X10*3/uL (160-400); Red Blood Count 4.07 X10*6/uL (4.20-5.50); Red Cell Distribution Width 11.9 % (11.0-16.0)
[2021-10-07 10:43] LABS: Anion Gap 13 (12-20); Blood Urea Nitrogen 14 mg/dL (9-16); Calcium 9.9 mg/dL (8.4-10.2); Carbon Dioxide 23 mmol/L (22-29); Chloride 108 mmol/L (96-108); Estimated Glomerular Filt Rate > 60; Glucose Random 113 mg/dL (60-115); Potassium 3.9 mmol/L (3.3-5.1); Sodium 140 mmol/L (135-145)
== END 2021-10-07 08:41 | disposition home or self-care (01) ==
LOC: HO.LAB 08:40
PROVIDERS: PCP Internal Medicine; Visit Provider Internal Medicine Cardiovascular Disease
DX: I20.0 Unstable angina (principal)
CPT/HCPCS: 36415; 80048; 85027; 85610

== ENCOUNTER → 2021-11-24 14:10 | Outpatient (BNVA) | payer OTHER, SELFPAY | PROVIDERS: PCP Internal Medicine; Referring Provider Internal Medicine; Visit Provider Internal Medicine Cardiovascular Disease | DX: I25.10 Atherosclerotic heart disease of native coronary artery without angina pectoris (principal); Z79.82 Long term (current) use of aspirin; Z79.899 Other long term (current) drug therapy | CPT/HCPCS: 99212 ==

== ENCOUNTER 2022-01-07 09:11 | Outpatient (REF) | payer OTHER, SELFPAY ==
[2022-01-07 10:35] LABS: Cholesterol 149 mg/dL; HDL Cholesterol 39 mg/dL; LDL Cholesterol Calculated 78 mg/dl; Triglycerides 164 mg/dL
== END 2022-01-07 09:12 | disposition home or self-care (01) ==
LOC: HO.LAB 09:11
PROVIDERS: PCP Internal Medicine; Visit Provider Internal Medicine Cardiovascular Disease
DX: I25.10 Atherosclerotic heart disease of native coronary artery without angina pectoris (principal)
CPT/HCPCS: 36415; 80061

== ENCOUNTER → 2022-01-13 14:57 | Outpatient (REF) | payer OTHER, SELFPAY ==
--- NOTE | 2022-01-13 15:01 | CA_ITS ---
Transthoracic Echocardiogram Patient (Last, First, Middle): Alyson Leonard P Gender: Female Date of : 1945 Age: 76 Procedure Date: 01/13/2022 Procedure Type: Transthoracic Echocardiogram Location: OP Height: 170.18 cm Weight: 71.67 kg BSA: 1.83 m2 Heart Rate: 83 bpm BP: 128 / 84 mmHg Fabrication Technician: SB Referring MD: Gurjit Medina MD [employer]: Gurjit Medina MD Symptoms: I25.10 - Atherosclerotic heart disease of [place] coronary artery without... Study Quality: Adequate ECG Rhythm: Sinus with extra beats Conclusions: - 1. Normal LV systolic function with grade 1 diastolic dysfunction with regional wall motion abnormality in RCA territory 2. Normal cardiac valvular Doppler 3. No gross pericardial effusion Findings Left Ventricle Normal left ventricular size, thickness, and systolic function. The visually estimated ejection fraction is between 55-60%. Spectral Doppler is indicative of an impaired relaxation filling pattern. E/E prime ratio is <8, consistent with normal filling pressures. Peak GLS is -15.8%, which is mildly reduced. Wall Motion Rest Echo Findings The basal inferior and basal inferoseptal segments are hypokinetic. All other scored wall segments showed normal motion. Right Ventricle Normal right ventricular cavity size and systolic function. Atria The left atrium is normal in size. There is lipomatous hypertrophy of the interatrial septum. There is a mobile atrial septum noted. There is no evidence of interatrial shunt. The right atrium is normal in size. Aortic Valve There is mild calcification of the aortic valve. There is no aortic valve stenosis. There is no aortic valve regurgitation. Mitral Valve There is mild anterior and posterior mitral leaflet thickening. There is trace mitral valve regurgitation. There is no mitral valve stenosis. Pulmonic Valve The pulmonic valve was not well visualized. Tricuspid Valve Normal tricuspid valve structure. Tricuspid regurgitation envelope is inadequate for calculation of right ventricular systolic pressure. Normal right atrial pressure. Great Vessels All visible segments of the aorta are normal in size. The pulmonary artery was not well visualized. Venous The inferior vena cava is normal in size and collapses greater than 50% with inspiration. Pericardium/Pleural There is no evidence of pericardial effusion. Prior Study Comparison no previous study in the last 5 years for comparison Measurements 2D Linear Measurements IVSd: 1.00 0.6-0.9/0.6-1.0 cm LVIDd: 4.49 3.9-5.3/4.2-5.9 cm LVIDd Index: 2.45 2.4-3.2/2.2-3.1 cm/m2 LVIDs: 2.80 2.0-3.6 cm LVPWd: 0.68 0.7-1.1 cm LA Diam: 2.50 2.7-3.8/3.0-4.0 cm LAIDs Index: 1.37 1.5-2.3 cm/m2 LV Mass: 149.67 67-162/88-224 g LV Mass Index: 81.78 43-95/49-115 g/m2 LVOT Diam: 2.30 3.0+(-)1.3 cm 2D Systolic Function EF 4C: 58.80 >55% EF 2C: 60.80 >55% EF BiP: 60.50 >55% Mitral Valve MV Pk E: 0.72 MV PK A: 0.85 MV Decel Time: 162.00 E/A: 0.80 E'Lateral: 7.40 E'Medial: 5.44 E/E' Med: 13.20 E/E' Lat: 9.70 PHT: 47.00 MVA PHT: 4.68 Decel [place]: 4.42 Aortic Valve AoV Pk Arjun: 1.50 AoV Mn Arjun: 0.96 AoV VTI: 0.27 AoV Pk Grad: 9.00 Aov Mn Grad: 4.00 LETHA Cont.VTI: 3.58 LVOT LVOT Pk Arjun: 1.05 LVOT Mn Arjun: 0.76 LVOT VTI: 0.23 LVOT Pk Grad: 4.00 LVOT Mn Grad: 3.00 LVOT Diam: 2.30 LVOT Area: 4.15 Diastolic Function MV Pk E: 0.72 MV Pk A: 0.85 E/A: 0.80 E'Medial: 5.44 E/E' Med: 13.20 E' Laterial: 7.40 E/E' Lat: 9.70 Right Ventricle TAPSE (mm): 23.50 TVS' Arjun: 13.10 Tricuspid Valve RA Press: 3.00 Great Vessels Aorta Sinus of Valsalva: 3.00 2.0-3.5 cm Ao Asc: 3.50 2.1-3.4 cm Pulmonary Veins Pulm Vein S/D 2.20 Pulmonary Valve PV Pk Arjun: 0.91 Peak PV Grad: 3.00 Updated in Other Vendor System with Status of Final Gurjit Medina MD electronically signed on 01/14/2022 11:29:52 AM with status of Final
== END ==
LOC: HO.CARD 14:57
PROVIDERS: Visit Provider Internal Medicine Cardiovascular Disease
DX: I25.10 Atherosclerotic heart disease of native coronary artery without angina pectoris (principal)
CPT/HCPCS: 93306; 93356

== ENCOUNTER 2022-12-23 09:14 | Outpatient (AMB) | payer OTHER, SELFPAY ==
--- NOTE | 2022-12-23 09:26 | MHC.OFFVIS ---
Intake Vital Signs 12/23/22 09:28 Height 5 ft 7 in Weight 163 lb 2.273 oz BMI 25.5 BP 142/84 H Blood Pressure Location Lt brachial Position Sitting Pulse 70 Pulse Source Monitor Intake Visit Reasons: follow up per patient Intake Note: Follow up with EKG. Header Boss Required: No Accompanied by: Self / Same As Patient Allergies Penicillins Allergy (Unknown, Verified 12/23/22 09:32) RASH sulfamethoxazole Allergy (Unknown, Verified 12/23/22 09:32) RASH trimethoprim Allergy (Unknown, Verified 12/23/22 09:32) RASH Medication List - Last Reconciled 12/23/22 by Joyce Terry NP-C ascorbic acid (vitamin C) 1,000 mg PO DAILY aspirin 81 mg PO DAILY biotin 5,000 mcg PO DAILY [id number] 513-85-0-125 nm-sw-mj-unit 1 tab PO BID cholecalciferol (vitamin D3) (Vitamin D3) 125 mcg PO DAILY estradiol 0.01%(0.1mg/gram) 1 g vaginal 3XW lisinopril 5 mg PO BID nitrofurantoin monohyd/m-cryst 100 mg (Macrobid) 100 mg PO BID 7 days omeprazole 20 mg PO BID rosuvastatin 40 mg PO DAILY vitamin A 2,400 mcg PO DAILY zinc 50 mg PO DAILY HPI follow up per patient HPI Details Alyson is a 77-year-old female with past medical history of hypertension, hyperlipidemia, coronary artery disease who presents for follow-up. Today she reports that she has been feeling very well recently. Her only complaint is that her ears block up from allergies and it gives her some mild lightheadedness. Her lightheadedness is improved with the use of meclizine. She denies any chest discomfort at rest or with activity. No shortness of breath, presyncope, syncope, falls, PND, orthopnea or edema. She recently went to [place] for 1 month and was very active and describes having a wonderful time. She is compliant with all her meds. Tells me that her insurance will be changing and she will now have a co-pay for visits. [facility] Medical History CAD (coronary artery disease) Hyperlipidemia HTN (hypertension) Crescendo angina Surgical History History of bladder surgery Family History Father No problems noted. Mother CAD (coronary artery disease) Social History Alcohol intake: never Patient Tobacco Use Status: Former Tobacco user Review of Systems Const All systems reviewed & are unremarkable except as noted in HPI and below Denies weakness ENT Details: Clogged ears and intermittent lightheaded indents Denies dizziness Card Denies chest pain, Denies chest pain with activity, Denies syncope, Denies rapid heart rate, Denies pedal edema, Denies edema, Denies leg edema, Denies lightheadedness, Denies palpitations, Denies dyspnea, Denies dyspnea on exertion and Denies orthopnea Resp Denies cough, Denies dyspnea and Denies dyspnea on exertion GI Denies hematochezia and Denies change in stool character Musc Denies abnormal gait, Denies muscle cramps, Denies muscle weakness, Denies numbness, Denies radiating pain into limb and Denies tingling Neuro Denies abnormal gait, Denies dizziness, Denies syncope, Denies numbness, Denies tingling and Denies weakness Endo Denies palpitations Physical Exam Vital Signs: Last Vital Signs Pulse 70 12/23/22 09:28 BP 142/84 H 12/23/22 09:28 BMI result Body Mass Index 25.5 Const General: cooperative, healthy appearing, comfortable and no acute distress Orientation/consciousness: patient oriented x3 Neck Neck: Yes normal visual inspection Resp Effort & Inspection: normal respiratory effort Auscultation: clear to auscultation bilaterally, no crackles, no rales, no rhonchi and no wheezes Cardio Jugular venous distension: no JVD Rate: regular rate Rhythm: regular rhythm Heart sounds: S1 normal heart sound present, S2 normal heart sound present, no murmurs and no rubs Neuro General: patient oriented x3 Extrem General: Yes normal to inspection Psych Appearance: grossly normal Mental Status: mental status grossly normal Speech and movement: Normal speech and movement present Office Procedures EKG Details: Today, read by me, sinus rhythm, septal Q-wave, can not rule out prior infarct, rate 70, no significant change from prior, QTC 421 milliseconds [id number], Complete Assessment & Plan Assessment & Plan (1) CAD (coronary artery disease): Comment: Nonobstructive by cardiac catheterization with 50% ostial RCA disease which was negative by IFR Code(s): I25.10 - Atherosclerotic heart disease of [place] coronary artery without angina pectoris Plan: History of nonobstructive CAD. Cardiac catheterization done 10/08/2021 showing 50% ostial RCA disease, IFR negative. Her nuclear stress test had been done 07/29/2021 showing moderate size inferior lateral ischemia, EF 60%. According to Dr. Reece last note: abnormal stress test is unexplain and could represent angina with nonobstructive coronary artery disease and/or hypertensive heart disease. Last echo done 01/13/2022 showed normal LV systolic function EF 55-60%, regional wall motion abnormality in the RCA territory, normal valves. Today she reports feeling very well with no cardiac symptoms. EKG done today shows normal sinus rhythm, septal Q-wave, rate 70, , unchanged from prior. She has been maintained on medical management for CAD including aspirin 81 mg daily indefinitely. Rosuvastatin high-dose with ideal LDL goal less than 70. She is overdue for a lipid profile and will obtain today. She is on lisinopril for blood pressure control. Will update CMP today. Blood pressure 142/84. She tells me whenever she comes to the doctor her systolic is 140. Home blood pressures typically 120 to 130s systolic. Signs and symptoms of angina reviewed with her. Cardiology follow-up in 1 year, sooner if needed. (2) HTN (hypertension): Code(s): I10 - Essential (primary) hypertension Qualifiers: Hypertension type: primary hypertension Qualified Code(s): I10 - Essential (primary) hypertension Plan: Mild elevation in the office. She tells me home blood pressures are better controlled. She does have reported anxiety and high stressors in her life right now. She is very talkative throughout visit. No med changes made. She will continue to follow closely with her PCP. Lisinopril dose can be further titrated as warranted (3) Hyperlipidemia: Code(s): E78.5 - Hyperlipidemia, unspecified Qualifiers: Hyperlipidemia type: unspecified Qualified Code(s): E78.5 - Hyperlipidemia, unspecified Plan: [place] LDL goal less than 70. Obtaining lipid profile today. Continue rosuvastatin. Will add Zetia if LDL not at goal Orders: Orders Lipid Panel Today I25.10 - Atherosclerotic heart disease of [place] coronary artery without angina pectoris Comprehensive Met. Panel Today I25.10 - Atherosclerotic heart disease of [place] coronary artery without angina pectoris Coding Level of Care Code Est Pt Level 4 (21869) Diagnoses CAD (coronary artery disease) I25.10 Primary hypertension I10 Hypertension type: primary hypertension Hyperlipidemia, unspecified hyperlipidemia type E78.5 Hyperlipidemia type: unspecified CPT Codes EKG - CPT: 38477-[id number], Complete ([id number]) Time Spent (min) 28
[2022-12-23 09:28] VITALS: BP 142/84; PULSE 70; BMI 25.5
== END 2022-12-23 10:23 | disposition home or self-care (01) ==
PROVIDERS: PCP Internal Medicine; Referring Provider Internal Medicine; Visit Provider Nurse Practitioner Family
DX: I25.10 Atherosclerotic heart disease of native coronary artery without angina pectoris (principal); I10 Essential (primary) hypertension; E78.5 Hyperlipidemia, unspecified
CPT/HCPCS: 93010; 99214

== ENCOUNTER 2022-12-23 09:14 | Outpatient (REF) | payer OTHER, SELFPAY ==
[2022-12-23 12:00] LABS: Alanine Aminotransferase 27 U/L (0-31); Albumin Level 4.8 g/dL (3.5-5.0); Alkaline Phosphatase 64 U/L (39-117); Anion Gap 13 (12-20); Aspartate Amino Transferase 27 U/L (5-31); Bilirubin Total 0.5 mg/dL (0.0-1.0); Blood Urea Nitrogen 13 mg/dL (9-16); Calcium 9.8 mg/dL (8.4-10.2); Carbon Dioxide 23 mmol/L (22-29); Chloride 109 mmol/L (96-108); Cholesterol 114 mg/dL (<200); Estimated Glomerular Filt Rate > 60; Glucose Random 123 mg/dL (60-115); HDL Cholesterol 38 mg/dL (>40); LDL Cholesterol Calculated 47 mg/dL (<100); Potassium 4.1 mmol/L (3.3-5.1); Sodium 141 mmol/L (135-145); Total Protein 7.3 g/dL (6.5-8.0); Triglycerides 145 mg/dL (<150)
== END 2022-12-23 09:15 | disposition home or self-care (01) ==
LOC: HO.LAB 09:14
PROVIDERS: PCP Internal Medicine; Referring Provider Internal Medicine; Visit Provider Nurse Practitioner Family
DX: I25.10 Atherosclerotic heart disease of native coronary artery without angina pectoris (principal); I10 Essential (primary) hypertension; E78.5 Hyperlipidemia, unspecified; Z79.899 Other long term (current) drug therapy
CPT/HCPCS: 36415; 80053; 80061; 93005; 99212

== ENCOUNTER 2024-01-09 08:57 | Outpatient (AMB) | payer OTHER, SELFPAY ==
--- NOTE | 2024-01-09 09:34 | MHC.OFFVIS ---
Vital Signs 01/09/24 09:35 Height 5 ft 7 in Weight 162 lb 11.218 oz BMI 25.5 BP 148/62 H Blood Pressure Location Lt brachial Position Sitting Pulse 78 Pulse Source Monitor Intake Visit Reasons: 1Y follow up Grinder Needle Tip Required: No Allergies Penicillins Allergy (Unknown, Verified 01/09/24 09:39) RASH sulfamethoxazole Allergy (Unknown, Verified 01/09/24 09:39) RASH trimethoprim Allergy (Unknown, Verified 01/09/24 09:39) RASH Medication List - Last Reconciled 01/09/24 by Joyce Terry NP-C ascorbic acid (vitamin C) 1,000 mg PO DAILY aspirin 81 mg PO DAILY biotin 5,000 mcg PO DAILY zkngmwh-vjk-byt [id number]-[id number] 582-25-0-125 pc-pt-ue-unit 1 tab PO BID cholecalciferol (vitamin D3) (Vitamin D3) 125 mcg PO DAILY estradiol 0.01%(0.1mg/gram) 1 g vaginal 3XW lisinopril 5 mg PO BID omeprazole 20 mg PO BID rosuvastatin 40 mg PO DAILY vitamin A 2,400 mcg PO DAILY zinc 50 mg PO DAILY HPI HPI 1Y follow up: Details: Alyson is a 77-year-old female with past medical history of hypertension, hyperlipidemia, nonobstructive coronary artery disease who presents for follow-up. Today she reports that she has been feeling overall since her last visit 1 year ago. She does describe 1 episode where she had lightheadedness and sweatiness after moving her refrigerator to clean behind it. She says she sat down and rested and this symptom resolved. She has remained very active with her house cleaning and she does chair yoga. She has not been having chest discomfort at rest or with activity. She does get some shortness of breath in the morning which she feels is something new. She has a history of having some shortness of breath with stair climbing, overall that is unchanged. No PND, orthopnea or edema. No presyncope, syncope, falls. Taking meds as directed. [facility] Medical History CAD (coronary artery disease) Hyperlipidemia HTN (hypertension) [place] angina Surgical History History of bladder surgery Family History Father No problems noted. Mother CAD (coronary artery disease) Social History Alcohol intake: never Patient Tobacco Use Status: Former Tobacco user Review of Systems Const All systems reviewed & are unremarkable except as noted in HPI and below ENT Reports dizziness (one episode after moving refrigerator) Card Denies chest pain, Denies chest pain at rest, Denies chest pain with activity, Denies rapid heart rate, Denies pedal edema, Denies edema, Denies leg edema, Denies lightheadedness, Denies palpitations, Reports dyspnea, Reports dyspnea on exertion and Denies orthopnea Resp Denies cough, Reports dyspnea and Reports dyspnea on exertion GI Denies hematochezia and Denies change in stool character Musc Denies abnormal gait, Denies limited range of motion, Denies muscle cramps, Denies muscle weakness, Denies numbness, Denies radiating pain into limb, Denies stiffness and Denies tingling Neuro Denies abnormal gait, Reports dizziness (one episode after moving refrigerator), Denies numbness and Denies tingling Endo Denies palpitations Physical Exam Vital Signs: Last Vital Signs Pulse 78 01/09/24 09:35 BP 148/62 H 01/09/24 09:35 BMI result Body Mass Index 25.5 Const General: cooperative, healthy appearing, comfortable and no acute distress Orientation/consciousness: patient oriented x3 Neck Neck: Yes normal visual inspection Resp Effort & Inspection: normal respiratory effort Auscultation: clear to auscultation bilaterally, no crackles, no rales, no rhonchi and no wheezes Cardio Jugular venous distension: no JVD Rate: regular rate Rhythm: regular rhythm Heart sounds: S1 normal heart sound present, S2 normal heart sound present, no murmurs and no rubs Neuro General: patient oriented x3 Extrem General: Yes normal to inspection Psych Appearance: grossly normal Mental Status: mental status grossly normal Speech and movement: Normal speech and movement present Office Procedures EKG Details: Today, read by me, normal sinus rhythm, septal Q-wave, rate 78, QTC 440 millisecond [id number], Complete Assessment & Plan Assessment & Plan (1) CAD (coronary artery disease): Comment: Nonobstructive by cardiac catheterization with 50% ostial RCA disease which was negative by IFR Code(s): I25.10 - Atherosclerotic heart disease of [place] coronary artery without angina pectoris Category: Medical Plan: History of nonobstructive CAD. Cardiac catheterization done 10/08/2021 showing 50% ostial RCA disease, IFR negative. Her nuclear stress test had been done 07/29/2021 showing moderate size inferior lateral ischemia, EF 60%. According to Dr. Reece last note: abnormal stress test is unexplain and could represent angina with nonobstructive coronary artery disease and/or hypertensive heart disease. Last echo done 01/13/2022 showed normal LV systolic function EF 55-60%, regional wall motion abnormality in the RCA territory, normal valves. Today she reports feeling very well overall. She does have chronic shortness of breath with stairs. She does describe some newer shortness of breath in the mornings which is somewhat vague. She had an episode of feeling lightheaded and sweaty after moving her refrigerator to clean behind it. She has not had recurrent symptoms like that. Will update an echocardiogram to ensure that EF and wall motion is unchanged. EKG from today shows normal sinus rhythm, septal Q-wave and slight ST abnormality inferiorly which is unchanged from prior. Reviewed signs and symptoms of angina with her. Continue medical management for CAD including aspirin 81 mg daily indefinitely. Rosuvastatin high-dose with ideal LDL goal less than 70. Labs done 12/23/2022 showed LDL 47. Blood pressure today mildly elevated at 148/62. She tells me that her blood pressures are always mildly elevated when she comes to the office due to some anxiety. She is on lisinopril for blood pressure control. If blood pressures are persistently elevated than the lisinopril dose can be increased. She follows closely with her PCP. Cardiology follow-up in 6 months, sooner if needed. (2) HTN (hypertension): Code(s): I10 - Essential (primary) hypertension Category: Medical Qualifiers: Hypertension type: primary hypertension Qualified Code(s): I10 - Essential (primary) hypertension Plan: Mild elevation in the office. She tells me home blood pressures are better controlled. She does have reported anxiety and high stressors in her life right now. She is very talkative throughout visit. No med changes made. She will continue to follow closely with her PCP. Lisinopril dose can be further titrated as warranted (3) Hyperlipidemia: Code(s): E78.5 - Hyperlipidemia, unspecified Category: Medical Qualifiers: Hyperlipidemia type: unspecified Qualified Code(s): E78.5 - Hyperlipidemia, unspecified Plan: [place] LDL goal less than 70. Well controlled. Continue rosuvastatin. (4) Shortness of breath: Code(s): R06.02 - Shortness of breath Category: Medical Plan: Shortness of breath with stair climbing. Also newer shortness of breath in the morning that improves throughout the day. Updating echocardiogram. Plan Time spent on chart review, documentation, interview and assessment Orders: Orders CA echo transthoracic complete Today I25.10 - Atherosclerotic heart disease of [place] coronary artery without angina pectoris, R06.02 - Shortness of breath Coding Level of Care Code Est Pt Level 4 (30953) Diagnoses CAD (coronary artery disease) I25.10 Primary hypertension I10 Hypertension type: primary hypertension Hyperlipidemia, unspecified hyperlipidemia type E78.5 Hyperlipidemia type: unspecified Shortness of breath R06.02 CPT Codes EKG - CPT: [id number], Complete ([id number]) Time Spent (min) 30
[2024-01-09 09:35] VITALS: BP 148/62; PULSE 78; BMI 25.5
== END 2024-01-09 10:19 | disposition home or self-care (01) ==
PROVIDERS: PCP Internal Medicine; Visit Provider Nurse Practitioner Family
DX: I25.10 Atherosclerotic heart disease of native coronary artery without angina pectoris (principal); I10 Essential (primary) hypertension; E78.5 Hyperlipidemia, unspecified; R06.02 Shortness of breath
CPT/HCPCS: 93010; 99214

== ENCOUNTER → 2024-01-09 08:57 | Outpatient (BNVA) | payer OTHER, SELFPAY | PROVIDERS: PCP Internal Medicine; Visit Provider Nurse Practitioner Family | DX: I10 Essential (primary) hypertension (principal); I25.10 Atherosclerotic heart disease of native coronary artery without angina pectoris; E78.5 Hyperlipidemia, unspecified; R06.02 Shortness of breath | CPT/HCPCS: 93005; 99212 ==

== ENCOUNTER → 2024-02-16 08:58 | Outpatient (REF) | payer OTHER, SELFPAY ==
--- NOTE | 2024-02-16 09:01 | CA_ITS ---
Transthoracic Echocardiogram Amended Patient (Last, First, Middle): Alyson Leonard P Gender: Female Date of : 1945 Age: 78 Procedure Date: 02/16/2024 Procedure Type: Transthoracic Echocardiogram Location: OP Height: 170. cm Weight: 71.67 kg BSA: 1.83 m2 Heart Rate: 67 bpm BP: 160 / 70 mmHg Payable Processor: ZHOU Chambers MD: Joyce Terry RIDE MECHANIC-C Career Development Coordinator/Teacher: Gurjit Medina MD Symptoms: R06.02 - Shortness of breath Study Quality: Adequate ECG Rhythm: Sinus Conclusions: - 1. Normal LV ejection fraction of 60 65% with impaired relaxation filling pattern 2. Normal cardiac valvular Dopplers 3. Upper limits of normal ascending aortic size at 3.5 cm 4. No gross pericardial effusion Findings Left Ventricle Normal left ventricular size, thickness, and systolic function. The visually estimated ejection fraction is between 60-65%. Spectral Doppler is indicative of an impaired relaxation filling pattern. E/E prime ratio is between 8 and 15 consistent with indeterminate filling pressures. Peak GLS is -16.5%, mildly reduced. Wall Motion Rest Echo Findings The basal inferior and mid inferior segments are hypokinetic. All other scored wall segments showed normal motion. Right Ventricle Normal right ventricular cavity size and systolic function. Atria Both atria are normal in size. There is no evidence of interatrial shunt. Aortic Valve Normal aortic valve structure and function. Mitral Valve Normal mitral valve structure and function. There is trace mitral valve regurgitation. There is no mitral valve stenosis. Pulmonic Valve The pulmonic valve is likely normal. Tricuspid Valve Likely normal tricuspid valve structure and function. Tricuspid regurgitation envelope is inadequate for calculation of right ventricular systolic pressure. Normal right atrial pressure. Great Vessels The pulmonary artery was not well visualized. There is no dilatation of the ascending aorta measuring 3.50 cm. There is no evidence of plaque in the aorta. Venous The inferior vena cava is normal in size and collapses greater than 50% with inspiration. Pericardium/Pleural There is no evidence of pericardial effusion. Prior Study Comparison No significant change compared to prior study dated: 01/13/2022. Measurements 2D Linear Measurements IVSd: 0.91 0.6-0.9/0.6-1.0 cm LVIDd: 4.83 3.9-5.3/4.2-5.9 cm LVIDd Index: 2.64 2.4-3.2/2.2-3.1 cm/m2 LVIDs: 3.02 2.0-3.6 cm LVPWd: 0.76 0.7-1.1 cm LA Diam: 2.70 2.7-3.8/3.0-4.0 cm LAIDs Index: 1.48 1.5-2.3 cm/m2 LV Mass: 168.95 67-162/88-224 g LV Mass Index: 92.32 43-95/49-115 g/m2 LVOT Diam: 1.90 3.0+(-)1.3 cm 2D Volumes LA Vol: 25.30 2D Systolic Function EF 4C: 60.70 >55% EF 2C: 68.90 >55% EF BiP: 65.70 >55% Mitral Valve MV Pk E: 0.66 MV PK A: 0.88 MV Decel Time: 173.00 E/A: 0.80 E'Lateral: 7.62 E'Medial: 5.87 E/E' Med: 11.20 E/E' Lat: 8.70 PHT: 51.00 MVA PHT: 4.31 Decel Citrus: 3.81 Aortic Valve AoV Pk Arjun: 1.54 AoV Mn Arjun: 1.11 AoV VTI: 0.34 AoV Pk Grad: 9.00 Aov Mn Grad: 5.00 LETHA Cont.VTI: 1.67 LVOT LVOT Pk Arjun: 0.92 LVOT Mn Arjun: 0.70 LVOT VTI: 0.20 LVOT Pk Grad: 3.00 LVOT Mn Grad: 2.00 LVOT Diam: 1.90 LVOT Area: 2.84 Diastolic Function MV Pk E: 0.66 MV Pk A: 0.88 E/A: 0.80 E'Medial: 5.87 E/E' Med: 11.20 E' Laterial: 7.62 E/E' Lat: 8.70 Right Ventricle TAPSE (mm): 26.50 TVS' Arjun: 13.10 Tricuspid Valve RA Press: 3.00 Great Vessels Aorta Sinus of Valsalva: 3.20 2.0-3.5 cm Ao Asc: 3.50 2.1-3.4 cm Ao Arch: 3.10 Pulmonary Valve PV Pk Arjun: 0.84 Peak PV Grad: 3.00 Updated in Other Vendor System with Status of Final Gurjit Medina MD electronically signed on 02/16/2024 1:06:08 PM with status of Final
== END ==
LOC: HO.CARD 08:58
PROVIDERS: PCP Internal Medicine; Visit Provider Nurse Practitioner Family
DX: R06.02 Shortness of breath (principal); I25.10 Atherosclerotic heart disease of native coronary artery without angina pectoris
CPT/HCPCS: 93306; 93356

== ENCOUNTER → 2024-02-16 09:01 | Outpatient (BNV) | payer OTHER, SELFPAY | PROVIDERS: PCP Internal Medicine; Visit Provider Internal Medicine Cardiovascular Disease | DX: R06.02 Shortness of breath (principal) | CPT/HCPCS: 93306; 93356 ==

== ENCOUNTER 2024-07-22 08:45 | Outpatient (AMB) | payer OTHER, SELFPAY ==
[2024-07-22 08:49] VITALS: BP 132/70; PULSE 94; BMI 24.8
--- NOTE | 2024-07-22 08:49 | MHC.OFFVIS ---
Vital Signs 07/22/24 08:49 Height 5 ft 7 in Weight 158 lb 4.67 oz BMI 24.8 BP 132/70 Blood Pressure Location Lt brachial Position Sitting Pulse 94 Pulse Source Pulse Oximeter Intake Visit Reasons: 6 mth f/up echo Policy Manager Required: No Allergies Penicillins Allergy (Unknown, Verified 07/22/24 08:51) RASH sulfamethoxazole Allergy (Unknown, Verified 07/22/24 08:51) RASH trimethoprim Allergy (Unknown, Verified 07/22/24 08:51) RASH Medication List - Last Reconciled 07/22/24 by Joyce Terry NP-C ascorbic acid (vitamin C) 1,000 mg PO DAILY aspirin 81 mg PO DAILY biotin 5,000 mcg PO DAILY [id number]-ahr-aou [id number] [id number] mw-is-gu-unit 1 tab PO BID cholecalciferol (vitamin D3) (Vitamin D3) 125 mcg PO DAILY estradiol 0.01%(0.1mg/gram) 1 g vaginal 3XW lisinopril 5 mg PO BID omeprazole 20 mg PO BID rosuvastatin 40 mg PO DAILY vitamin A 2,400 mcg PO DAILY zinc 50 mg PO DAILY HPI HPI 6 mth f/up echo: Details: Alyson is a 79 year-old female with past medical history of hypertension, hyperlipidemia, nonobstructive coronary artery disease who presents for follow-up. Today she reports that she has been feeling overall since her last visit 6 mo ago. She has remained very active and still does chair yoga. She has not been having chest discomfort at rest or with activity. She says at times she feels a little short of breath, but not always. No PND, orthopnea or edema. No presyncope, syncope, falls. Taking meds as directed. [facility] Medical History CAD (coronary artery disease) Hyperlipidemia HTN (hypertension) Crescendo angina Surgical History History of bladder surgery Family History Father No problems noted. Mother CAD (coronary artery disease) Social History Alcohol intake: never Patient Tobacco Use Status: Former Tobacco user Review of Systems Const All systems reviewed & are unremarkable except as noted in HPI and below ENT Details: ears blocked, vertigo Reports dizziness Card Details: Mild sob with stairs Denies chest pain, Denies chest pain at rest, Denies chest pain with activity, Denies rapid heart rate, Denies pedal edema, Denies edema, Denies leg edema, Denies lightheadedness, Denies palpitations, Denies dyspnea, Denies dyspnea on exertion and Denies orthopnea Resp Denies cough, Denies dyspnea and Denies dyspnea on exertion GI Denies hematochezia and Denies change in stool character Musc Denies abnormal gait, Denies limited range of motion, Denies muscle cramps, Denies muscle weakness, Denies numbness, Denies radiating pain into limb, Denies stiffness and Denies tingling Neuro Denies abnormal gait, Reports dizziness, Denies numbness and Denies tingling Endo Denies palpitations Physical Exam Vital Signs: Last Vital Signs Pulse 94 07/22/24 08:49 BP 132/70 07/22/24 08:49 BMI result Body Mass Index 24.8 Const General: cooperative, healthy appearing, comfortable and no acute distress Orientation/consciousness: patient oriented x3 Neck Neck: Yes normal visual inspection Resp Effort & Inspection: normal respiratory effort Auscultation: clear to auscultation bilaterally, no rales, no rhonchi and no wheezes Cardio Jugular venous distension: no JVD Rate: regular rate Rhythm: regular rhythm Heart sounds: S1 normal heart sound present, S2 normal heart sound present, no gallops, no murmurs and no rubs Neuro General: patient oriented x3 Extrem General: Yes normal to inspection, No no pedal edema and No calf tenderness Psych Appearance: grossly normal Mental Status: mental status grossly normal Speech and movement: Normal speech and movement present Assessment & Plan Assessment & Plan (1) CAD (coronary artery disease): Comment: Nonobstructive by cardiac catheterization with 50% ostial RCA disease which was negative by IFR Code(s): I25.10 - Atherosclerotic heart disease of [place] coronary artery without angina pectoris Category: Medical Plan: History of nonobstructive CAD that is managed medically and with risk factor modification. Cardiac catheterization done 10/08/2021 showing 50% ostial RCA disease, IFR negative. Last echo done 02/16/24 showed normal LV systolic function EF 60-65%, regional wall motion abnormality in the RCA territory, normal valves. Condition stable with no anginal sounding symptoms. Continue medical management for CAD including aspirin 81 mg daily indefinitely. Rosuvastatin high-dose with ideal LDL goal less than 70. Continue Lisinopril for good BP control. BP today 132/70. Continue activity as tolerated. Reviewed signs and symptoms of angina with her. Cardiology follow-up in 6 months, sooner if needed. (2) HTN (hypertension): Code(s): I10 - Essential (primary) hypertension Category: Medical Qualifiers: Hypertension type: primary hypertension Qualified Code(s): I10 - Essential (primary) hypertension Plan: BP goal < 130/80. Near goal at present. No med changes made. Reviewed low salt diet. Continue Lisinopril. (3) Hyperlipidemia: Code(s): E78.5 - Hyperlipidemia, unspecified Category: Medical Qualifiers: Hyperlipidemia type: unspecified Qualified Code(s): E78.5 - Hyperlipidemia, unspecified Plan: [place] LDL goal less than 70. Due for lipid profile, ordered. Continue rosuvastatin. Plan Time spent on chart review, documentation, interview and assessment Orders: Orders Lipid Panel Today E78.5 - Hyperlipidemia, unspecified, I10 - Essential (primary) hypertension Complete Blood Count Auto Diff Today E78.5 - Hyperlipidemia, unspecified, I10 - Essential (primary) hypertension Comprehensive Met. Panel Today E78.5 - Hyperlipidemia, unspecified, I10 - Essential (primary) hypertension Coding Level of Care Code Est Pt Level 4 (16257) Complex EM visit Add On G2211 Diagnoses CAD (coronary artery disease) I25.10 Primary hypertension I10 Hypertension type: primary hypertension Hyperlipidemia, unspecified hyperlipidemia type E78.5 Hyperlipidemia type: unspecified Time Spent (min) 28
== END 2024-07-22 09:33 | disposition home or self-care (01) ==
LOC: HO.HCS 08:45
PROVIDERS: PCP Internal Medicine; Visit Provider Nurse Practitioner Family
DX: I25.10 Atherosclerotic heart disease of native coronary artery without angina pectoris (principal); I10 Essential (primary) hypertension; E78.5 Hyperlipidemia, unspecified
CPT/HCPCS: 99214; G2211

== ENCOUNTER → 2024-07-22 08:45 | Outpatient (BNVA) | payer OTHER, SELFPAY | PROVIDERS: PCP Internal Medicine; Visit Provider Nurse Practitioner Family | DX: I10 Essential (primary) hypertension (principal); I25.10 Atherosclerotic heart disease of native coronary artery without angina pectoris; E78.5 Hyperlipidemia, unspecified; Z87.891 Personal history of nicotine dependence | CPT/HCPCS: 99212 ==

== ENCOUNTER 2024-10-04 09:17 | Outpatient (AMB) | payer OTHER, SELFPAY ==
--- NOTE | 2024-10-04 09:39 | MHC.PC.OV ---
Vital Signs 10/04/24 10:02 Height 5 ft 7 in Weight 73.482 kg BMI 25.4 BP 138/80 Blood Pressure Location Lt brachial Position Sitting Pulse 83 Pulse Source Pulse Oximeter Temp 97.5 F Temp Source Axillary Pulse Oximetry (%) 99 Oxygen Delivery Method Room Air Intake Visit Reasons: Routine Drainage Design Coordinator Required: No Accompanied by: Self / Same As Patient Allergies Penicillins Allergy (Unknown, Verified 10/04/24 10:05) RASH sulfamethoxazole Allergy (Unknown, Verified 10/04/24 10:05) RASH trimethoprim Allergy (Unknown, Verified 10/04/24 10:05) RASH Tobacco use date assessed: 10/04/24 Fall risk assessment: 1 Fall in past year Last assessed Fall Risk: 10/04/24 Dental Screening Dental Screen Date: 10/04/24 Did you have a dental visit in the last 12 months?: Yes Did you have a dental problem in the last 6 months where you did not have access to dental care?: No HPI HPI Comments History of Present Illness Details 79-year-old female with history of hypertension, hyperlipidemia, coronary artery disease, crescendo angina presents to the office today for management of chronic conditions and to establish care. Hypertension-compliant with lisinopril 5 mg b.i.d.. Blood pressure in the office today is 138/80. Hyperlipidemia/CAD-on rosuvastatin 40 mg daily. No recent anginal chest pain. Following annually with Dr. Medina in Cardiology Concerns: He has been experiencing constant vertigo ongoing for about 10 weeks. This was resulted in about 3 falls. She has taken meclizine with some effect. She has also been experiencing a blocked ear sensation ongoing for 7 years. No otalgia or hearing loss. No tinnitus. She has tried Tessa and fluticasone which did not help. Reports the pressure is constant. Does occasionally have sinus headaches. Vertigo x 10 weeks. Has fallen 3 times. x7 years blocked ears. Tried CLear winter, starts in spring. Tessa and fluticatone She is also reporting intention tremors and memory loss. Reports these stop when resting. Also feels them through her body Health maintenance: No longer undergoing colonoscopies or screening mammograms Due for DEXA scan ROS: General: No fevers, malaise, unintentional weight loss HEENT: See HPI Cardiovascular: No chest pain, palpitations, or leg edema Respiratory: No shortness of breath, wheezing, cough MSK: No myalgia, back pain Neuro: See HPI Skin: No rashes or lesions EXAM: Constitutional - Awake and Alert, No apparent distress Eyes - PERRL Ears-external ears normal, canals clear, TMs pearly mendoza and intact Cardiovascular - S1S2, RRR, No edema Respiratory - Normal lung expansion, Normal respiratory effort, No respiratory distress, CTA bilaterally Extremities - no calf tenderness bilaterally, no swelling Skin - Warm/Dry Neurological - Alert & oriented x3. Intention tremor bilateral hands. CN II-XII in tact. Negative romberg. 5/5 strength bue and ble Psychological - Appropriate affect [facility] Medical History CAD (coronary artery disease) Hyperlipidemia HTN (hypertension) Crescendo angina Surgical History History of bladder surgery Family History Father No problems noted. Mother CAD (coronary artery disease) Social History Housing: Apartment Alcohol intake: never Patient Tobacco Use Status: Former Tobacco user e-Cigarette/Vaping Use: Former Use service: No Current occupational status: retired Cognitive needs: No Hearing needs: No Vision needs: Yes (reading glasses) Questionnaire PHQ-9 Over the last 2 weeks, how often have you been bothered by any of the following problems? 1. Little interest or pleasure in doing things: more than half the days 2. Feeling down, depressed, or hopeless: nearly every day 3. Trouble falling or staying asleep, or sleeping too much: more than half the days 4. Feeling tired or having little energy: more than half the days 5. Poor appetite or overeating: several days 6. Feeling bad about yourself - or that you are a failure or have let yourself or your family down: not at all 7. Trouble concentrating on things, such as reading the newspaper or watching television: more than half the days 8. Moving or speaking so slowly that other people could have noticed. Or the opposite - being so fidgety or restless that you have been moving around a lot more than usual: more than half the days 9. Thoughts that you would be better off or of hurting yourself in some way: not at all Total score: 14 Source: Developed by Drs. Calixto Peacock, Julia Allred, Mu Espinosa and colleagues, with an educational kayla from [employer]. Thrive Questionnaire Date Thrive assessed: 10/04/24 I am a: Patient What is your living situation today?: I have a steady place to live Within the past 12 months, did the food you bought not last and you didn't have the money to get more?: Never true Within the past 12 months, did you worry whether your food would run out before you got money to buy more?: Never true Do you have trouble paying for medicines?: No Do you have trouble getting transportation to medical appointments?: No Do you have trouble paying your heating and electricity bill?: No Do you have trouble taking care of your child, family member or friend?: No Do you have trouble with day-to-day activities such as bathing, preparing meals, shopping, managing finances, etc.?: No Are you currently unemployed and looking for a job?: No Are you interested in more education?: No Please select the resources that you would like help with: None THRIVE Score: 0 AUDIT C Alcohol Use Questionnaire (AUDIT-C) 1. How often do you have a drink containing alcohol?: Never 3. How often do you have six or more drinks on one occasion?: Never Total Score: 0 STAR-7 AMB Questionnaire STAR-7 Date STAR - 7 assessed: 10/04/24 Feeling nervous, anxious, or on edge: 1 = Several days Not being able to stop or control worryin = Not at all Worrying too much about different things: 1 = Several days Trouble relaxin = Not at all Being so restless that it is hard to sit still: 0 = Not at all Becoming easily annoyed or irritable: 1 = Several days Feeling afraid as if something awful might happen: 0 = Not at all Total STAR-7 score (0-4 normal; 5-9 mild; 10-14 moderate; 15-21 severe): 3 Source: Developed by Julia Wiggins, Mu Espinosa and colleagues, with an educational kayla from [employer]. Physical exam (Primary Care) Vital Signs: Last Vital Signs Temp 97.5 F 10/04/24 10:02 Pulse 83 10/04/24 10:02 BP 138/80 10/04/24 10:02 Pulse Ox 99 10/04/24 10:02 Oxygen Delivery Method Room Air 10/04/24 10:02 BMI result Body Mass Index 25.4 Tobacco/Smoking Status: Tobacco use Status Tobacco use date assessed 10/04/24 10/04/24 10:08 Patient Tobacco Use Status Former Tobacco user 10/04/24 09:41 e-Cigarette/Vaping Use Former Use 10/04/24 10:08 PHQ-9: PHQ-9 Score PHQ-9: Total score 14 10/04/24 10:14 Thrive Assessment: Date of Thrive Assessment Date Thrive assessed 10/04/24 10/04/24 09:41 Coding Level of Care Code New Pt Level 4 (47284) Complex EM visit Add On G2211 Diagnoses Primary hypertension I10 Hypertension type: primary hypertension CAD (coronary artery disease) I25.10 Hyperlipidemia, unspecified hyperlipidemia type E78.5 Hyperlipidemia type: unspecified Vertigo R42 Tremor R25.1 Assessment & Plan Assessment & Plan (1) HTN (hypertension): Code(s): I10 - Essential (primary) hypertension Category: Medical Qualifiers: Hypertension type: primary hypertension Qualified Code(s): I10 - Essential (primary) hypertension Plan: Controlled. Continue lisinopril 5 mg b.i.d.. Low-sodium diet (2) CAD (coronary artery disease): Comment: Nonobstructive by cardiac catheterization with 50% ostial RCA disease which was negative by IFR Code(s): I25.10 - Atherosclerotic heart disease of [place] coronary artery without angina pectoris Category: Medical Plan: Stable. Continue with Cardiology. Continue rosuvastatin, baby aspirin (3) Hyperlipidemia: Code(s): E78.5 - Hyperlipidemia, unspecified Category: Medical Qualifiers: Hyperlipidemia type: unspecified Qualified Code(s): E78.5 - Hyperlipidemia, unspecified Plan: Controlled. Continue Crestor 40 mg daily (4) Vertigo: Code(s): R42 - Dizziness and giddiness Category: Medical Plan: Constant resulting in falls. MRI of the brain ordered. Referral placed to ENT given coinciding ear pressure though this has been ongoing. Will also placed to neurology for evaluation. Can continue meclizine as needed though this has not been overly helpful (5) Tremor: Code(s): R25.1 - Tremor, unspecified Category: Medical Plan: Diffuse, most prominent in the hands. Intentional in nature. Referred to Neurology for further evaluation Plan Follow-up in the office in 4 months. Referrals as noted. Referred for DEXA scan Orders: Orders XR DEXA axial skeleton Today Z78.0 - Asymptomatic menopausal state Referrals Ear/Nose/Throat Referral H93.8X9 - Other specified disorders of ear, unspecified ear, R42 - Dizziness and giddiness, R51.9 - Headache, unspecified Neurology Referral R25.1 - Tremor, unspecified, R42 - Dizziness and giddiness, Z82.0 - Family history of epilepsy and other diseases of the nervous system
[2024-10-04 10:02] VITALS: BP 138/80; PULSE 83; TEMP 36.4; O2SAT 99; BMI 25.4
== END 2024-10-04 10:39 | disposition home or self-care (01) ==
LOC: HO.HMCHD 09:17
PROVIDERS: PCP Internal Medicine; Visit Provider Physician Assistant
DX: I10 Essential (primary) hypertension (principal); I25.10 Atherosclerotic heart disease of native coronary artery without angina pectoris; E78.5 Hyperlipidemia, unspecified; R42 Dizziness and giddiness; R25.1 Tremor, unspecified

== ENCOUNTER → 2024-10-04 09:17 | Outpatient (BNVA) | payer OTHER, SELFPAY | PROVIDERS: PCP Internal Medicine; Visit Provider Physician Assistant | DX: Z76.89 Persons encountering health services in other specified circumstances (principal); I10 Essential (primary) hypertension; I25.10 Atherosclerotic heart disease of native coronary artery without angina pectoris; E78.5 Hyperlipidemia, unspecified; R42 Dizziness and giddiness; R25.1 Tremor, unspecified; Z79.82 Long term (current) use of aspirin; Z79.899 Other long term (current) drug therapy; Z13.30 Encounter for screening examination for mental health and behavioral disorders, unspecified | CPT/HCPCS: 96127; 99202 ==

== ENCOUNTER 2024-10-04 10:49 | Outpatient (REF) | payer OTHER, SELFPAY ==
[2024-10-04 13:06] LABS: MANUAL DIFF FLAG NO
[2024-10-04 13:14] LABS: Basophils Absolute Auto 0.1 X10*3/uL (0.0-0.2); Basophils Percent Auto 1.1 % (0-2); Eosinophils Absolute Auto 0.4 X10*3/uL (0.0-0.4); Eosinophils Percent Auto 5.6 % (0-4); Hematocrit 36.2 % (37.0-47.0); Hemoglobin 12.4 g/dl (12.0-16.0); Imm Gran Abs Auto 0.01 X10*3/uL (0.00-0.03); Imm Gran Pct Auto 0.2 % (0.0-0.4); Lymphocytes Absolute Auto 2.6 X10*3/uL (1.2-4.9); Lymphocytes Percent Auto 39.7 % (20-40); Mean Corpuscular HGB Conc 34.3 g/dl (31.0-35.0); Mean Corpuscular Hemoglobin 30.5 pg (27.0-33.0); Mean Corpuscular Volume 89.2 fL (80.0-98.0); Mean Platelet Volume 9.6 fL (9.4-12.3); Monocytes Absolute Auto 0.5 X10*3/uL (0.1-1.2); Monocytes Percent Auto 8.2 % (2-11); Neutrophils Percent Auto 45.2 % (45-73); Platelet Count 242 X10*3/uL (160-400); Red Blood Count 4.06 X10*6/uL (4.20-5.50); White Blood Count 6.6 X10*3/uL (4.8-10.8)
[2024-10-04 13:23] LABS: Alanine Aminotransferase 37 U/L (0-31); Alkaline Phosphatase 68 U/L (39-117); Anion Gap 11 (12-20); Aspartate Amino Transferase 36 U/L (5-31); Bilirubin Total 0.4 mg/dL (0.0-1.0); Blood Urea Nitrogen 14 mg/dL (9-16); Calcium 9.5 mg/dL (8.4-10.2); Carbon Dioxide 25 mmol/L (22-29); Chloride 108 mmol/L (96-108); Cholesterol 118 mg/dL (<200); Estimated Glomerular Filt Rate > 60; Glucose Random 105 mg/dL (60-115); HDL Cholesterol 41 mg/dL (>40); LDL Cholesterol Calculated 56 mg/dL (<100); Sodium 140 mmol/L (135-145); Total Protein 7.3 g/dL (6.5-8.0); Triglycerides 105 mg/dL (<150)
== END 2024-10-04 10:50 | disposition home or self-care (01) ==
LOC: HO.10HDL 10:49
PROVIDERS: Referring Provider Physician Assistant; Visit Provider Nurse Practitioner Family
DX: I10 Essential (primary) hypertension (principal); E78.5 Hyperlipidemia, unspecified
CPT/HCPCS: 36415; 80053; 80061; 85025

== ENCOUNTER 2024-12-31 10:55 | Outpatient (REF) | payer OTHER, SELFPAY ==
--- NOTE | ~2024-12-31 | MM_ITS ---
EXAMINATION: BONE DENSITOMETRY CLINICAL INDICATION: Asymptomatic menopausal state. COMPARISON: This is the patient's baseline examination. TECHNIQUE: Using a [employer] dual-energy x-ray absorptiometry was performed of the lumbar spine and left femur neck. The images are of good technical quality. Summary results are attached. FINDINGS: AP SPINE L1-L4: BMD 1.117 g/cm2, Z-score 1.0, T-score -0.5, previous T score -0.7 LEFT FEMUR, NECK: BMD 0.762 g/cm2, Z-score -0.1, T-score -2.0, previous T score -1.1 LEFT FEMUR, TOTAL: BMD 0.795 g/cm2, Z-score 0.0, T Score -1.7, previous T score -0.1 IDENTIFIED RISK FACTORS: None listed. HISTORY OF FRACTURE: None listed. MEDICATIONS: Calcium. MM/XR DEXA axial skeleton IMPRESSION: 1. DIAGNOSIS: Osteopenia based on the Lowest T Score value of -2.0 in the left femoral neck applying World Health Organization criteria. 2. 10-YEAR FRACTURE RISK PREDICTION, FRAX: 14.8 3. Treatment Recommendations: NOF guidelines recommend consideration for treatment in postmenopausal women and men age 50 and older presenting with the following: -A hip or vertebral (clinical or morphometric) fracture. -T score less than or equal to -2.5 at the femoral neck or spine after appropriate evaluation to exclude secondary causes. -Low bone mass at the hip or spine and a 10-year fracture probability by FRAX of greater than or equal to 3% for hip fracture or greater than or equal to for major osteoporotic fracture based on the [place] adapted WHO algorithm. FUTURE SCAN RECOMMENDATION: People with diagnosed cases osteoporosis or at high risk for fracture should have regular bone mineral density tests. For patients eligible for Medicare, routine testing is allowed once every 2 years. The testing frequency can be increased to one year for patients who have rapidly progressing disease, those who are receiving or discontinuing medical therapy to restore bone mass, or have additional risk factors. Electronically signed by: Nikolai Shin MD 12/31/2024 03:30 PM EDT
== END 2024-12-31 10:56 | disposition home or self-care (01) ==
LOC: HO.MAMMO 10:55
PROVIDERS: PCP Physician Assistant; Visit Provider Physician Assistant
DX: Z13.820 Encounter for screening for osteoporosis (principal); Z78.0 Asymptomatic menopausal state
CPT/HCPCS: 77080

== ENCOUNTER → 2024-12-31 11:30 | Outpatient (BNV) | payer OTHER, SELFPAY | PROVIDERS: PCP Physician Assistant; Visit Provider Radiology Diagnostic Radiology | DX: E28.39 Other primary ovarian failure (principal) | CPT/HCPCS: 77080 ==

== ENCOUNTER 2025-01-29 10:28 | Outpatient (AMB) | payer OTHER, SELFPAY ==
--- NOTE | 2025-01-29 09:59 | A.OFFPC_ITS ---
Vital Signs 01/29/25 10:34 01/29/25 12:21 Height 5 ft 7.09 in Weight 73.936 kg BMI 25.5 BP 146/70 H 136/66 Blood Pressure Location Lt brachial Position Sitting Respiration 18 Pulse 98 Pulse Source Pulse Oximeter Temp 97.8 F Temp Source Temporal Artery Scan Pulse Oximetry (%) 90 L Comment Pt has false nails. unable to get a accurate O2 Intake Visit Reasons: f/u scan Vibrating Screed Operator Required: No Accompanied by: Self / Same As Patient Allergies Penicillins Allergy (Unknown, Verified 01/29/25 09:59) RASH sulfamethoxazole Allergy (Unknown, Verified 01/29/25 09:59) RASH trimethoprim Allergy (Unknown, Verified 01/29/25 09:59) RASH Medication List - Last Reconciled 01/29/25 by KODY Singh ascorbic acid (vitamin C) 1,000 mg PO DAILY aspirin 81 mg PO DAILY biotin 5,000 mcg PO DAILY [id number] [id number] ah-dt-ek-unit 1 tab PO BID cholecalciferol (vitamin D3) (Vitamin D3) 125 mcg PO DAILY lisinopril 5 mg PO BID mirtazapine 15 mg PO BEDTIME omeprazole 20 mg PO BID rosuvastatin 40 mg PO DAILY vitamin A 2,400 mcg PO DAILY zinc 50 mg PO DAILY Tobacco use date assessed: 10/04/24 Dental Screening Dental Screen Date: 10/04/24 HPI HPI Comments 2 History of Present Illness Details 79-year-old female with history of hyper tension, hyperlipidemia, coronary artery disease, osteopenia, crescendo angina presents to the office today for management of chronic conditions and to establish care. Hypertension-compliant with lisinopril 5 mg b.i.d.. Blood pressure in the office today is controlled at 136/66 on recheck Hyperlipidemia/CAD-on rosuvastatin 40 mg daily. No recent anginal chest pain. Following annually with Dr. Medina in Cardiology Osteopenia-last DEXA scan 12/2024. On calcium vitamin d. Does isometrics Vertigo-ongoing intermittently x7 years. She does experience balance issues and has had several falls, most recently 3 months ago. She has taken meclizine in the past with some relief. She does report increased pressure in the ears which clears by holding her nose and blowing out. However, she does still experience bilateral hearing loss. Has tried Tessa and fluticasone without effect. Has not use nasal rinses. Was referred to ENT but reports she has not been contacted for an appointment. Does appear to be worse seasonally, particularly in spring. GERD-managed with omeprazole 20 mg twice daily. Has had intermittent worsening symptoms manifesting as chest pain. Cardiac workup in the ED negative and also follows with Cardiology. Stress/insomnia-reports has had difficulty sleeping ongoing for years. She states that about 4 days of the week she will not experience any sleep at all. She does not experience tiredness at night and often ruminates on life stressors and unable to settle her thoughts. Denies any symptoms of rahel. No history of bipolar disorder. She does feel very tired and groggy during the day she reports many stressors including her 21-year-old granddaughter having been diagnosed with throat cancer who recently completed radiation therapy. She also has a grandson who was found to have a congenital heart defect after being diagnosed with croup. Unclear severity, has been referred to Cardiology. She also states that her son is currently his of 30 years. She has also gained weight and has been unable to lose this. She does endorse some depression with tearfulness throughout the day but denies any SI/HI. Concerns: Vertigo as above Insomnia/stress as above Health maintenance: DEXA scan up-to-date No longer undergoing screening mammograms or colonoscopy ROS: General: No fevers, malaise, unintentional weight loss HEENT: See HPI Cardiovascular: No chest pain, palpitations, or leg edema Respiratory: No shortness of breath, wheezing, cough MSK: No myalgia, back pain Neuro: See HPI Psych: See HPI Skin: No rashes or lesions EXAM: Constitutional - Awake and Alert, No apparent distress Eyes - PERRL Ears-external ears normal, canals clear, TMs pearly mendoza and intact Cardiovascular - S1S2, RRR, No edema Respiratory - Normal lung expansion, Normal respiratory effort, No respiratory distress, CTA bilaterally Extremities - no calf tenderness bilaterally, no swelling Skin - Warm/Dry Neurological - Alert & oriented x3. Intention tremor bilateral hands. CN II-XII in tact. Negative romberg. 5/5 strength bue and ble Psychological - Appropriate affect [facility] Medical History (Updated 01/29/25 @ 12:22 by KODY Singh) Osteopenia CAD (coronary artery disease) Hyperlipidemia HTN (hypertension) Crescendo angina Surgical History History of bladder surgery Family History Father No problems noted. Mother CAD (coronary artery disease) Social History Housing: Apartment Alcohol intake: never Patient Tobacco Use Status: Former Tobacco user e-Cigarette/Vaping Use: Former Use service: No Current occupational status: retired Cognitive needs: No Hearing needs: No Vision needs: Yes (reading glasses) Questionnaire Thrive Questionnaire Date Thrive assessed: 10/04/24 STAR-7 AMB Questionnaire STAR-7 Date STAR - 7 assessed: 10/04/24 Source: Developed by Drs. Calixto Peacock, Julia Allred, Mu Espinosa and colleagues, with an educational kayla from [employer]. Physical exam (Primary Care) Vital Signs: Last Vital Signs Temp 97.8 F 01/29/25 10:34 Pulse 98 01/29/25 10:34 Resp 18 01/29/25 10:34 BP 146/70 H 01/29/25 10:34 Pulse Ox 90 L 01/29/25 10:34 BMI result Body Mass Index 25.5 Tobacco/Smoking Status: Tobacco use Status Tobacco use date assessed 10/04/24 01/29/25 09:59 Patient Tobacco Use Status Former Tobacco user 01/29/25 09:59 e-Cigarette/Vaping Use Former Use 01/29/25 09:59 Thrive Assessment: Date of Thrive Assessment Date Thrive assessed 10/04/24 01/29/25 09:59 Coding Level of Care Code Est Pt Level 4 (99765) Complex EM visit Add On G2211 Diagnoses Primary hypertension I10 Hypertension type: primary hypertension CAD (coronary artery disease) I25.10 Hyperlipidemia, unspecified hyperlipidemia type E78.5 Hyperlipidemia type: unspecified Vertigo R42 Tremor R25.1 Insomnia G47.00 Adjustment disorder F43.20 Assessment & Plan Assessment & Plan (1) HTN (hypertension): Code(s): I10 - Essential (primary) hypertension Category: Medical Qualifiers: Hypertension type: primary hypertension Qualified Code(s): I10 - Essential (primary) hypertension Plan: Controlled. Continue lisinopril 5 mg b.i.d.. Low-sodium diet (2) CAD (coronary artery disease): Comment: Nonobstructive by cardiac catheterization with 50% ostial RCA disease which was negative by IFR Code(s): I25.10 - Atherosclerotic heart disease of circle coronary artery without angina pectoris Category: Medical Plan: Stable. Continue with Cardiology. Continue rosuvastatin, baby aspirin (3) Hyperlipidemia: Code(s): E78.5 - Hyperlipidemia, unspecified Category: Medical Qualifiers: Hyperlipidemia type: unspecified Qualified Code(s): E78.5 - Hyperlipidemia, unspecified Plan: Controlled. Continue Crestor 40 mg daily (4) Vertigo: Code(s): R42 - Dizziness and giddiness Category: Medical Plan: Constant resulting in falls. MRI of the brain ordered. Referral placed to ENT given coinciding ear pressure though this has been ongoing. Will also placed to neurology for evaluation. Can continue meclizine as needed though this has not been overly helpful (5) Tremor: Code(s): R25.1 - Tremor, unspecified Category: Medical Plan: Diffuse, most prominent in the hands. Intentional in nature. Referred to Neurology for further evaluation (6) Insomnia: Code(s): G47.00 - Insomnia, unspecified Category: Medical Plan: Trial mirtazapine which should also help with mood. Counseled on side effects. Can also consider lorazepam if no improvement in symptoms. Sleep hygiene discus sed and written information given. Can also try valerian root. (7) Adjustment disorder: Code(s): F43.20 - Adjustment disorder, unspecified Category: Medical Plan: Mirtazapine as above. Recommend following up with a counselor, given resources Plan Follow-up in the office in 6 weeks Orders: Orders MR head/brain wo con Today R26.81 - Unsteadiness on feet, R42 - Dizziness and giddiness, W19.XXXA - Unspecified fall, initial encounter Medications: New mirtazapine 15 mg PO BEDTIME 90 tabs 1RF Patient Instructions: Trial valerian root for insomnia Continue working of healthy sleep routines. Check [facility] for a list of counselors for adjustment disorder
[2025-01-29 10:34] VITALS: BP 146/70; PULSE 98; RESP 18; TEMP 36.6; O2SAT 90; BMI 25.5
[2025-01-29 12:21] VITALS: BP 136/66
== END 2025-01-29 11:28 | disposition home or self-care (01) ==
LOC: HO.HMCHD 10:29
PROVIDERS: PCP Physician Assistant; Visit Provider Physician Assistant
DX: I10 Essential (primary) hypertension (principal); I25.10 Atherosclerotic heart disease of native coronary artery without angina pectoris; E78.5 Hyperlipidemia, unspecified; R42 Dizziness and giddiness; R25.1 Tremor, unspecified; G47.00 Insomnia, unspecified; F43.20 Adjustment disorder, unspecified

== ENCOUNTER → 2025-01-29 10:28 | Outpatient (BNVA) | payer OTHER, SELFPAY | PROVIDERS: PCP Physician Assistant; Visit Provider Physician Assistant | DX: I10 Essential (primary) hypertension (principal); I25.10 Atherosclerotic heart disease of native coronary artery without angina pectoris; E78.5 Hyperlipidemia, unspecified; R42 Dizziness and giddiness; R25.1 Tremor, unspecified; G47.00 Insomnia, unspecified; F43.20 Adjustment disorder, unspecified; M85.80 Other specified disorders of bone density and structure, unspecified site; K21.9 Gastro-esophageal reflux disease without esophagitis; Z73.3 Stress, not elsewhere classified; Z79.82 Long term (current) use of aspirin; Z79.899 Other long term (current) drug therapy | CPT/HCPCS: 99212 ==